=== PATIENT | female | born 1945 | race Caucasian/White ===

== ENCOUNTER 2021-11-23 07:58 | Outpatient (RCR) | payer BC, MEDICAID, SELFPAY | END 2021-11-30 09:14 | disposition home or self-care (01) | LOC: HO.WCC 07:58 | PROVIDERS: Referring Provider Physician Assistant; Visit Provider Surgery | DX: Z09 Encounter for follow-up examination after completed treatment for conditions other than malignant neoplasm (principal); L30.9 Dermatitis, unspecified; I48.91 Unspecified atrial fibrillation; I11.0 Hypertensive heart disease with heart failure; I50.9 Heart failure, unspecified; Z87.891 Personal history of nicotine dependence | CPT/HCPCS: 99213 ==

== ENCOUNTER 2022-02-17 11:18 | Emergency (ER) | payer BC, MEDICAID, SELFPAY ==
--- NOTE | ~2022-02-17 | XR_ITS ---
EXAMINATION: XR HIP, RIGHT CLINICAL INFORMATION: Fall one month ago. COMPARISON: None TECHNIQUE: Two views of the right hip. AP pelvis one view. FINDINGS: AP pelvis and right hip: There is normal symmetry of bilateral hip joints and SI joints. No pelvic bone abnormality seen. AP and frog-leg views right hip reveals no fracture, dislocation or dislocation. The soft tissues are normal. XR/XR hip RT w PEL1V IMPRESSION: Unremarkable AP pelvis and right hip exam. No visible acute fracture, dislocation or subluxation seen.
--- NOTE | ~2022-02-17 | US_ITS ---
EXAMINATION: US VENOUS ULTRASOUND WITH DOPPLER LOWER EXTREMITY, RIGHT CLINICAL INFORMATION: Right lower extremity pain. COMPARISON: None TECHNIQUE: Ultrasound of the deep veins is performed from the hip to the calf with compression sonography and color and pulse Doppler assessment. Spectral analysis with color-flow imaging is performed. FINDINGS: There is normal venous compression and respiratory variation and augmented flow. The visualized common femoral vein, superficial femoral vein, profunda femoral vein, popliteal vein, and the trifurcation region shows no evidence of deep venous thrombosis. There is no significant popliteal fossa cyst. If the patient's symptoms persist, followup ultrasound in 5 days 7 days might be of value to exclude proximal propagation from a non-visualized calf vein. US/US venous duplex LE RT IMPRESSION: No DVT demonstrated in the right lower extremity.
[2022-02-17 12:51] VITALS: BP 125/59; PULSE 64; RESP 16; TEMP 35.9; O2SAT 98; BMI 39.9
--- NOTE | 2022-02-17 12:51 | ED.GENADULT ---
HPI - General Adult General Chief complaint: Extremity Problem <CHARLEY Dodge - Last Filed: 02/17/22 13:03> Stated complaint: r hip pain <CHARLEY Dodge - Last Filed: 02/17/22 13:03> Time Seen by Provider: 02/17/22 14:35 <CHARLEY Dodge - Last Filed: 02/17/22 13:03> Source: patient and EMS <CHARLEY Dodge - Last Filed: 02/17/22 13:03> Mode of arrival: EMS <CHARLEY Dodge - Last Filed: 02/17/22 13:03> Limitations: no limitations <CHARLEY Dodge - Last Filed: 02/17/22 13:03> History of Present Illness HPI narrative: 76-year-old female with a past medical history of ?Lumbar fracture months ago s/p mechanical fall presenting to the ED complaining of acute on chronic right hip/groin pain since fall months ago. Denies more recent injury/fall or trauma. States pain intermittently radiates down right lower extremity. Reports chronic urinary incontinence, without new symptoms. Denies fever, weakness, numbness/tingling, urinary retention. Admits PCP recently started on gabapentin however self discontinued as believed it was worsening symptoms <CHARLEY Talbot - Last Filed: 02/17/22 19:14> Onset (ago): month(s) <CHARLEY Talbot - Last Filed: 02/17/22 19:14> Related Data Home medications: Home Medications Medication Instructions Recorded Confirmed acetaminophen 650 mg 1 tab PO Q8H PRN pain 02/17/22 02/17/22 tablet,extended release (8 Hour Pain Reliever) apixaban 5 mg tablet (Eliquis) 1 tab PO BID 02/17/22 02/17/22 betamethasone, augmented 0.05 % 1 appl topical BID PRN itch 02/17/22 02/17/22 topical cream calcium carbonate 500 mg-vitamin 1 tab PO BID 02/17/22 02/17/22 D3 10 mcg (400 unit) tablet (Calcium 500 With D) clindamycin HCl 300 mg capsule 1 cap PO TID 02/17/22 02/17/22 diltiazem HCl 240 mg 1 cap PO DAILY 02/17/22 02/17/22 capsule,extended release 24 hr ibuprofen 600 mg tablet 1 tab PO Q8H PRN pain 02/17/22 02/17/22 lidocaine 5 % topical ointment 1 appl topical TID PRN Back Pain 02/17/22 02/17/22 tizanidine 2 mg tablet 1 tab PO TID PRN muscle spasm 02/17/22 02/17/22 torsemide 20 mg tablet 2 tab PO DAILY 02/17/22 02/17/22 <CHARLEY Dodge - Last Filed: 02/17/22 13:03> Allergies/adverse reactions: Allergies Allergy/AdvReac Type Severity Reaction Status Date / Time No Known Allergies Allergy Verified 02/17/22 13:01 <CHARLEY Dodge - Last Filed: 02/17/22 13:03> Review of Systems Review of Systems: Constitutional: No Fever, No Chills ENT/Mouth: No Ear Pain, No Nasal Congestion, No sore throat, No Rhinorrhea, No Swallowing Difficulty Cardiovascular: No Chest Pain, No SOB Respiratory: No Cough, No Sputum Gastrointestinal: No Nausea, No Vomiting, No Diarrhea, No Constipation, No Abdominal pain Genitourinary: No Dysuria, No Urinary Frequency, No Hematuria, No Urinary Incontinence/retention, No Flank Pain Musculoskeletal: + joint pain, No Myalgias, No Joint Swelling Skin: No Skin Lesions, No rash Neuro: No Weakness, No Numbness, No Paresthesias <CHARLEY Talbot - Last Filed: 02/17/22 19:14> Yes all other systems are reviewed and are negative <CHARLEY Talbot - Last Filed: 02/17/22 19:14> Constitutional: Constitutional: Reports as per HPI <CHARLEY Talbot - Last Filed: 02/17/22 19:14> Neurologic: Denies Sensory deficit (Neuro) <CHARLEY Talbto Last Filed: 02/17/22 19:14> [facility] Past Medical History Attestation statement: The following information was validated with the patient. <CHARLEY Talbot Last Filed: 02/17/22 19:14> Social History Social History: Social History Advance Directives: No Advance Directives Information Provided: No <CHARLEY Dodge - Last Filed: 02/17/22 13:03> Physical Exam ED Vital Signs: Vital Signs - 24 hr 02/17/22 12:51 Temperature 96.7 F L Pulse Rate 64 Respiratory Rate 16 Blood Pressure 125/59 L Pulse Oximetry 98 Oxygen Delivery Method Room Air BMI result Body Mass Index 39.9 <CHARLEY Dodge - Last Filed: 02/17/22 13:03> Vital Signs - 24 hr 02/17/22 12:51 Temperature 96.7 F L Pulse Rate 64 Respiratory Rate 16 Blood Pressure 125/59 L Pulse Oximetry 98 Oxygen Delivery Method Room Air BMI result Body Mass Index 39.9 <CHARLEY Talbot - Last Filed: 02/17/22 19:14> Const General: cooperative, healthy appearing and no acute distress <CHARLEY Talbot - Last Filed: 02/17/22 19:14> Orientation/consciousness: patient oriented x3 <CHARLEY Talbot - Last Filed: 02/17/22 19:14> Limitations: no limitations <CHARLEY Talbot - Last Filed: 02/17/22 19:14> HENMT Head: Yes normal to inspection and Yes atraumatic <CHARLEY Talbot - Last Filed: 02/17/22 19:14> Ears: hearing grossly normal bilaterally <CHARLEY Talbot - Last Filed: 02/17/22 19:14> General nose exam: Normal external nose present <CHARLEY Talbot - Last Filed: 02/17/22 19:14> Face and sinus: Yes normal facial exam <CHARLEY Talbot - Last Filed: 02/17/22 19:14> Eyes General: appearance normal, both eyes and all related structures <CHARLEY Talbot - Last Filed: 02/17/22 19:14> EOM: EOMs intact bilaterally <CHARLEY Talbot - Last Filed: 02/17/22 19:14> Neck Neck: Yes normal visual inspection and Yes no meningeal signs <CHARLEY Talbot - Last Filed: 02/17/22 19:14> Resp Effort & Inspection: normal respiratory effort and no respiratory distress <Barbara Pouliot, PA - Last Filed: 02/17/22 19:14> Cardio Rate: regular rate <Barbara Pouliot, PA - Last Filed: 02/17/22 19:14> Heart sounds: S1 normal heart sound present and S2 normal heart sound present <Barbara Pouliot, PA - Last Filed: 02/17/22 19:14> Peripheral pulses: Peripheral pulses 2+ throughout <Barbara Pouliot, PA - Last Filed: 02/17/22 19:14> GI Inspection: Yes normal to inspection <Barbara Pouliot, PA - Last Filed: 02/17/22 19:14> Palpation (GI): Soft to palpation, nontender, no guarding and not rigid <Barbara Pouliot, PA - Last Filed: 02/17/22 19:14> General: Yes no CVA tenderness <Barbara Pouliot, PA - Last Filed: 02/17/22 19:14> Back/Spine/Pelvis Other: No midline thoracic/lumbar spinous tenderness/step-off or deformity <Barbara Pouliot, PA - Last Filed: 02/17/22 19:14> Back: no CVA tenderness <Barbara Pouliot, PA - Last Filed: 02/17/22 19:14> Skin Rashes: no rashes <Barbara Christieiot, PA - Last Filed: 02/17/22 19:14> Wounds: no wounds <Barabra Christiedatt, PA - Last Filed: 02/17/22 19:14> Neuro Other: Strength intact throughout. No saddle anesthesia. Sensation intact to light touch. Neurovascular intact distally <Barbara Christieiot, PA - Last Filed: 02/17/22 19:14> General: patient oriented x3, tone normal, moves all extremities and no meningeal signs <Barbara Pouliot, PA - Last Filed: 02/17/22 19:14> Motor exam (neuro): 5/5 motor strength present throughout <Barbara Pouliot, PA - Last Filed: 02/17/22 19:14> Sensory Exam: No Sensory deficit (Neuro) <Barbara Pouliot, PA - Last Filed: 02/17/22 19:14> Extrem Other: + right hip/groin with mild tenderness to palpation. Pain elicited with external rotation or right hip. Appreciable erythema/ecchymosis or deformity. Neurovascular intact distally. + mild right calf tenderness. No appreciable edema <CHARLEY Talbot Last Filed: 02/17/22 19:14> General: Yes normal to inspection <CHARLEY Talbot Last Filed: 02/17/22 19:14> Course Course Course Narrative: RME performed by Eneida Tabor PA-C. Patient is a 76 year old female presenting to the Emergency Department with right hip pain. Patient states that this is a chronic issue for which she was started on Gabapentin but it made it worse so she stopped taking it. Patient states that while she is here she would like to have her potassium checked and find out if her left ankle has cellulitis on it. CBC, CMP, ESR, CRP, and Toradol ordered. Patient placed back in waiting room pending results and bed availability. <CHARLEY Dodge Last Filed: 02/17/22 13:03> RME performed by Eneida Tabor PA-C. Patient is a 76 year old female presenting to the Emergency Department with right hip pain. Patient states that this is a chronic issue for which she was started on Gabapentin but it made it worse so she stopped taking it. Patient states that while she is here she would like to have her potassium checked and find out if her left ankle has cellulitis on it. CBC, CMP, ESR, CRP, and Toradol ordered. Patient placed back in waiting room pending results and bed availability. -1642--no appreciable leukocytosis. ESR/CRP mildly elevated. BUN elevated to 24 no available priors > will give 1 L IVF US venous duplex LE RT IMPRESSION: No DVT demonstrated in the right lower extremity. XR hip RT w PEL1V IMPRESSION: Unremarkable AP pelvis and right hip exam. No visible acute fracture, dislocation or subluxation seen. >> patient agreeable to PT/Case Management eval. Physician observation initiated -received records from [facility] patient with mild compression fracture of the superior endplate of L4 vertebral body without retropulsion of osseous fragments towards the spinal canal. Seen on CT from 02/04/2022 -190--ED care transfer to [facility] pending PT/case management <CHARLEY Talbot Last Filed: 02/17/22 19:14> Medications Administered Discontinued Medications Generic Name Dose Route Start Last Admin Trade Name Freq PRN Reason Stop Dose Admin Sodium Chloride 1,000 mls @ 999 mls/hr 02/17/22 16:45 02/17/22 18:36 Ns IV 02/17/22 17:45 Infused .Q1H1M KAREEM Infusion Ketorolac Tromethamine 15 mg 02/17/22 13:01 02/17/22 14:58 Ketorolac Tromethamine 15 Mg/Ml Vial IM 02/17/22 13:02 15 mg ONCE ONE Administration Tramadol HCl 50 mg 02/17/22 15:21 02/17/22 16:20 Tramadol Hcl 50 Mg Tablet PO 02/17/22 15:22 50 mg ONCE ONE Administration <CHARLEY Dodge - Last Filed: 02/17/22 13:03> Medications Administered Discontinued Medications Generic Name Dose Route Start Last Admin Trade Name Freq PRN Reason Stop Dose Admin Sodium Chloride 1,000 mls @ 999 mls/hr 02/17/22 16:45 02/17/22 18:36 Ns IV 02/17/22 17:45 Infused .Q1H1M KAREEM Infusion Ketorolac Tromethamine 15 mg 02/17/22 13:01 02/17/22 14:58 Ketorolac Tromethamine 15 Mg/Ml Vial IM 02/17/22 13:02 15 mg ONCE ONE Administration Tramadol HCl 50 mg 02/17/22 15:21 02/17/22 16:20 Tramadol Hcl 50 Mg Tablet PO 02/17/22 15:22 50 mg ONCE ONE Administration <CHARLEY Talbot - Last Filed: 02/17/22 19:14> Medical Decision Making [facility] Narrative Medical decision making narrative: 76-year-old female with a past medical history of ?Lumbar fracture months ago s/p mechanical fall presenting to the ED complaining of acute on chronic right hip/groin pain since fall months ago. On exam vital signs stable, NAD, nontoxic appearing, physical exam as noted above. Concern for acute on chronic arthritic/osteoarthritis pain vs ?Fracture vs DVT. No evidence of cellulitis. Low suspicion for septic joint, cauda equina/cord compression or renal stone/intra-abdominal pathology Plan: X-rays, venous duplex ultrasound, pain control <CHARLEY Talbot - Last Filed: 02/17/22 19:14> Medical Records Medical records reviewed: Yes I reviewed the patient's medical records. <CHARLEY Talbot - Last Filed: 02/17/22 19:14> Lab Data Lab results reviewed: Yes I reviewed the patient's lab results. <CHARLEY Talbot - Last Filed: 02/17/22 19:14> Result diagrams: : 02/17/22 13:13 02/17/22 13:12 <CHARLEY Dodge - Last Filed: 02/17/22 13:03> Labs: Lab Results 02/17/22 02/17/22 02/17/22 Range/Units 13:12 13:12 13:13 WBC 10.9 H (4.8-10.8) X10*3/uL RBC 4.51 (4.20-5.50) X10*6/uL Hgb 12.6 (12.0-16.0) g/dl Hct 39.2 (37.0-47.0) % MCV 86.9 (80.0-98.0) fL MCH 27.9 (27.0-33.0) pg MCHC 32.1 (31.0-35.0) g/dl RDW 14.0 (11.0-16.0) % Plt Count 306 (160-400) X10*3/uL MPV 10.6 (9.4-12.3) fL Immature Gran % (Auto) 0.3 (0.0-0.4) % Neut % (Auto) 78.5 H (45-73) % Lymph % (Auto) 13.9 L (20-40) % Dougherty % (Auto) 5.2 (2-11) % Eos % (Auto) 1.5 (0-4) % Baso % (Auto) 0.6 (0-2) % Lymph # (Auto) 1.5 (1.2-4.9) X10*3/uL Dougherty # (Auto) 0.6 (0.1-1.2) X10*3/uL Eos # (Auto) 0.2 (0.0-0.4) X10*3/uL Baso # (Auto) 0.1 (0.0-0.2) X10*3/uL Abs Immat Gran (auto) 0.03 (0.00-0.03) X10*3/uL Absolute Neuts (auto) 8.6 H (2.0-8.3) x10*3/uL Absolute Nucleated RBC 0.000 (0.0-0.012) X10*3/uL Nucleated RBC % (auto) 0.0 (0.0-0.2) /100WBC ESR (0-20) MM/HR Sodium 142 (135-145) mmol/L Potassium 3.5 (3.3-5.1) mmol/L Chloride 99 (96-108) mmol/L Carbon Dioxide 30 H (22-29) mmol/L Anion Gap 17 (12-20) BUN 24 H (9-16) mg/dL Creatinine 0.83 (0.5-1.4) mg/dL Estim Creat Clear Calc 58.7 Estimated GFR > 60 Random Glucose 104 (60-115) mg/dL Calcium 9.5 (8.4-10.2) mg/dL Total Bilirubin 0.4 (0.0-1.0) mg/dL AST 28 (5-31) U/L ALT 46 H (0-31) U/L Alkaline Phosphatase 91 (39-117) U/L C-Reactive Protein 3.06 H (< or = 0.50) mg/dL B-Natriuretic Peptide 64 (<100) pg/mL Total Protein 6.6 (6.5-8.0) g/dL Albumin 4.1 (3.5-5.0) g/dL 02/17/22 Range/Units 13:13 WBC (4.8-10.8) X10*3/uL RBC (4.20-5.50) X10*6/uL Hgb (12.0-16.0) g/dl Hct (37.0-47.0) % MCV (80.0-98.0) fL MCH (27.0-33.0) pg MCHC (31.0-35.0) g/dl RDW (11.0-16.0) % Plt Count (160-400) X10*3/uL MPV (9.4-12.3) fL Immature Gran % (Auto) (0.0-0.4) % Neut % (Auto) (45-73) % Lymph % (Auto) (20-40) % Dougherty % (Auto) (2-11) % Eos % (Auto) (0-4) % Baso % (Auto) (0-2) % Lymph # (Auto) (1.2-4.9) X10*3/uL Dougherty # (Auto) (0.1-1.2) X10*3/uL Eos # (Auto) (0.0-0.4) X10*3/uL Baso # (Auto) (0.0-0.2) X10*3/uL Abs Immat Gran (auto) (0.00-0.03) X10*3/uL Absolute Neuts (auto) (2.0-8.3) x10*3/uL Absolute Nucleated RBC (0.0-0.012) X10*3/uL Nucleated RBC % (auto) (0.0-0.2) /100WBC ESR 31 H (0-20) MM/HR Sodium (135-145) mmol/L Potassium (3.3-5.1) mmol/L Chloride (96-108) mmol/L Carbon Dioxide (22-29) mmol/L Anion Gap (12-20) BUN (9-16) mg/dL Creatinine (0.5-1.4) mg/dL Estim Creat Clear Calc Estimated GFR Random Glucose (60-115) mg/dL Calcium (8.4-10.2) mg/dL Total Bilirubin (0.0-1.0) mg/dL AST (5-31) U/L ALT (0-31) U/L Alkaline Phosphatase (39-117) U/L C-Reactive Protein (< or = 0.50) mg/dL B-Natriuretic Peptide (<100) pg/mL Total Protein (6.5-8.0) g/dL Albumin (3.5-5.0) g/dL <CHARLEY Dodge - Last Filed: 02/17/22 13:03> Lab Results 02/17/22 02/17/22 02/17/22 Range/Units 13:12 13:12 13:13 WBC 10.9 H (4.8-10.8) X10*3/uL RBC 4.51 (4.20-5.50) X10*6/uL Hgb 12.6 (12.0-16.0) g/dl Hct 39.2 (37.0-47.0) % MCV 86.9 (80.0-98.0) fL MCH 27.9 (27.0-33.0) pg MCHC 32.1 (31.0-35.0) g/dl RDW 14.0 (11.0-16.0) % Plt Count 306 (160-400) X10*3/uL MPV 10.6 (9.4-12.3) fL Immature Gran % (Auto) 0.3 (0.0-0.4) % Neut % (Auto) 78.5 H (45-73) % Lymph % (Auto) 13.9 L (20-40) % Dougherty % (Auto) 5.2 (2-11) % Eos % (Auto) 1.5 (0-4) % Baso % (Auto) 0.6 (0-2) % Lymph # (Auto) 1.5 (1.2-4.9) X10*3/uL Dougherty # (Auto) 0.6 (0.1-1.2) X10*3/uL Eos # (Auto) 0.2 (0.0-0.4) X10*3/uL Baso # (Auto) 0.1 (0.0-0.2) X10*3/uL Abs Immat Gran (auto) 0.03 (0.00-0.03) X10*3/uL Absolute Neuts (auto) 8.6 H (2.0-8.3) x10*3/uL Absolute Nucleated RBC 0.000 (0.0-0.012) X10*3/uL Nucleated RBC % (auto) 0.0 (0.0-0.2) /100WBC ESR (0-20) MM/HR Sodium 142 (135-145) mmol/L Potassium 3.5 (3.3-5.1) mmol/L Chloride 99 (96-108) mmol/L Carbon Dioxide 30 H (22-29) mmol/L Anion Gap 17 (12-20) BUN 24 H (9-16) mg/dL Creatinine 0.83 (0.5-1.4) mg/dL Estim Creat Clear Calc 58.7 Estimated GFR > 60 Random Glucose 104 (60-115) mg/dL Calcium 9.5 (8.4-10.2) mg/dL Total Bilirubin 0.4 (0.0-1.0) mg/dL AST 28 (5-31) U/L ALT 46 H (0-31) U/L Alkaline Phosphatase 91 (39-117) U/L C-Reactive Protein 3.06 H (< or = 0.50) mg/dL B-Natriuretic Peptide 64 (<100) pg/mL Total Protein 6.6 (6.5-8.0) g/dL Albumin 4.1 (3.5-5.0) g/dL 02/17/22 Range/Units 13:13 WBC (4.8-10.8) X10*3/uL RBC (4.20-5.50) X10*6/uL Hgb (12.0-16.0) g/dl Hct (37.0-47.0) % MCV (80.0-98.0) fL MCH (27.0-33.0) pg MCHC (31.0-35.0) g/dl RDW (11.0-16.0) % Plt Count (160-400) X10*3/uL MPV (9.4-12.3) fL Immature Gran % (Auto) (0.0-0.4) % Neut % (Auto) (45-73) % Lymph % (Auto) (20-40) % Dougherty % (Auto) (2-11) % Eos % (Auto) (0-4) % Baso % (Auto) (0-2) % Lymph # (Auto) (1.2-4.9) X10*3/uL Dougherty # (Auto) (0.1-1.2) X10*3/uL Eos # (Auto) (0.0-0.4) X10*3/uL Baso # (Auto) (0.0-0.2) X10*3/uL Abs Immat Gran (auto) (0.00-0.03) X10*3/uL Absolute Neuts (auto) (2.0-8.3) x10*3/uL Absolute Nucleated RBC (0.0-0.012) X10*3/uL Nucleated RBC % (auto) (0.0-0.2) /100WBC ESR 31 H (0-20) MM/HR Sodium (135-145) mmol/L Potassium (3.3-5.1) mmol/L Chloride (96-108) mmol/L Carbon Dioxide (22-29) mmol/L Anion Gap (12-20) BUN (9-16) mg/dL Creatinine (0.5-1.4) mg/dL Estim Creat Clear Calc Estimated GFR Random Glucose (60-115) mg/dL Calcium (8.4-10.2) mg/dL Total Bilirubin (0.0-1.0) mg/dL AST (5-31) U/L ALT (0-31) U/L Alkaline Phosphatase (39-117) U/L C-Reactive Protein (< or = 0.50) mg/dL B-Natriuretic Peptide (<100) pg/mL Total Protein (6.5-8.0) g/dL Albumin (3.5-5.0) g/dL <CHARLEY Talbot - Last Filed: 02/17/22 19:14> Discharge Plan Discharge Clinical Impression: Hip pain <CHARLEY Dodge - Last Filed: 02/17/22 13:03> Patient Disposition: Still a Patient <CHARLEY Dodge - Last Filed: 02/17/22 13:03> Prescriptions: No Action torsemide 20 mg tablet 2 tab PO DAILY tizanidine 2 mg tablet 1 tab PO TID PRN (Reason: muscle spasm) clindamycin HCl 300 mg capsule 1 cap PO TID diltiazem HCl 240 mg capsule,extended release 24hr 1 cap PO DAILY betamethasone, augmented 0.05 % cream 1 appl topical BID PRN (Reason: itch) acetaminophen [8 Hour Pain Reliever] 650 mg tablet extended release 1 tab PO Q8H PRN (Reason: pain) ibuprofen 600 mg tablet 1 tab PO Q8H PRN (Reason: pain) calcium carbonate-vitamin D3 [Calcium 500 With D] 500 mg-10 mcg (400 unit) tablet 1 tab PO BID lidocaine 5 % ointment 1 appl topical TID PRN (Reason: Back Pain) Eliquis 5 mg tablet 1 tab PO BID <CHARLEY Dodge - Last Filed: 02/17/22 13:03>
[2022-02-17 13:20] LABS: MANUAL DIFF FLAG NO
[2022-02-17 13:23] LABS: Basophils Absolute Auto 0.1 X10*3/uL (0.0-0.2); Basophils Percent Auto 0.6 % (0-2); Eosinophils Absolute Auto 0.2 X10*3/uL (0.0-0.4); Eosinophils Percent Auto 1.5 % (0-4); Hematocrit 39.2 % (37.0-47.0); Hemoglobin 12.6 g/dl (12.0-16.0); Imm Gran Abs Auto 0.03 X10*3/uL (0.00-0.03); Imm Gran Pct Auto 0.3 % (0.0-0.4); Lymphocytes Absolute Auto 1.5 X10*3/uL (1.2-4.9); Lymphocytes Percent Auto 13.9 % (20-40); Mean Corpuscular HGB Conc 32.1 g/dl (31.0-35.0); Mean Corpuscular Hemoglobin 27.9 pg (27.0-33.0); Mean Corpuscular Volume 86.9 fL (80.0-98.0); Mean Platelet Volume 10.6 fL (9.4-12.3); Monocytes Absolute Auto 0.6 X10*3/uL (0.1-1.2); Monocytes Percent Auto 5.2 % (2-11); Neutrophils Absolute Auto 8.6 x10*3/uL (2.0-8.3); Neutrophils Percent Auto 78.5 % (45-73); Platelet Count 306 X10*3/uL (160-400); Red Blood Count 4.51 X10*6/uL (4.20-5.50); White Blood Count 10.9 X10*3/uL (4.8-10.8)
[2022-02-17 13:38] LABS: Alanine Aminotransferase 46 U/L (0-31); Albumin Level 4.1 g/dL (3.5-5.0); Alkaline Phosphatase 91 U/L (39-117); Anion Gap 17 (12-20); Aspartate Amino Transferase 28 U/L (5-31); Bilirubin Total 0.4 mg/dL (0.0-1.0); Blood Urea Nitrogen 24 mg/dL (9-16); C Reactive Protein 3.06 mg/dL (< or = 0.50); Calcium 9.5 mg/dL (8.4-10.2); Carbon Dioxide 30 mmol/L (22-29); Chloride 99 mmol/L (96-108); Creatinine Clr Calc Pharmacy 58.7; Estimated Glomerular Filt Rate > 60; Glucose Random 104 mg/dL (60-115); Potassium 3.5 mmol/L (3.3-5.1); Sodium 142 mmol/L (135-145); Total Protein 6.6 g/dL (6.5-8.0)
[2022-02-17 13:56] LABS: Erythrocyte Sedimentation Rate 31 MM/HR (0-20)
[2022-02-17] MEDS: Ketorolac Tromethamine 15 MG/ML VIAL IM (14:58)
[2022-02-17 15:55] LABS: B Type Natriuretic Peptide 64 pg/mL (<100)
[2022-02-17] MEDS: traMADoL HCL 50 MG TABLET PO (16:20)
[2022-02-17] MEDS: 0.9 % Sodium Chloride 1,000 ML 999 ML IV (17:09)
--- NOTE | 2022-02-17 19:04 | PHA.MEDREC ---
Pharmacy Consult ? Medication Reconciliation Pharmacy has completed the medication reconciliation. Patient confirmed all medications. Reports that gabapentin made her feel weird so she stopped taking it. Nasreen Kent, MelD
--- NOTE | 2022-02-17 19:08 | PC.NURSE ---
Assumed care of pt.
[2022-02-17] MEDS: oxyCODONE HCl Immed Release 5 MG TABLET PO (19:34)
--- NOTE | 2022-02-17 19:35 | PC.NURSE ---
Administered oxycodone PO per MAY.
--- NOTE | 2022-02-17 19:59 | PC.NURSE ---
Patient ambulated to bathroom with 1 assist
[2022-02-17 20:37] VITALS: BP 128/48; PULSE 58; RESP 18; TEMP 36.4; O2SAT 96
[2022-02-17 21:07] LABS: COVID-19 Test Negative (Negative); IDNOW Serial# BCCEAD1C
[2022-02-18] VITALS: BP 114/48; PULSE 65; RESP 16; TEMP 36.8; O2SAT 95
--- NOTE | 2022-02-18 01:46 | PC.NURSE ---
Patient states a pain levle of 6/10 after ambulating to the bathroom (1 assist). Will notify provider as she is requesting meds for the pain.
[2022-02-18 01:48] VITALS: BP 132/47; PULSE 66; RESP 16; TEMP 36.5; O2SAT 93
--- NOTE | 2022-02-18 03:23 | PC.NURSE ---
Patient sleeping. No apparent distress. Will continue to monitor.
--- NOTE | 2022-02-18 03:25 | PC.NURSE ---
Patient is sleeping. No apparent distress. Will continue to monitor.
--- NOTE | 2022-02-18 06:43 | PC.NURSE ---
Assisted patient with getting to the restroom. Pt c/o increased pain after ambulating to the bathroom. Will notify provider and request medication for pain per patient request.
[2022-02-18 07:30] VITALS: BP 137/55; PULSE 66; RESP 18; TEMP 37; O2SAT 95
--- NOTE | 2022-02-18 10:19 | MHC.CM.ED ---
Received case management consult overnight. Patient came to the ER due to right hip pain exacerbation. Physical therapy eval completed. Resumption of home therapies are recommended. Met with patient in regards to discharge planning. Patient lives alone, ambulates independently and is active with [facility]. PCP is Pablo Santos. Patient has not received any Covid vaccines. Patient agreeable to returning home with resumption of [facility] for physical therapy. [facility] chair van booked for 1130am. Patient, Gabby BRONSON and Barbara WHITEHEAD aware. Continue to monitor for d/c needs.
[2022-02-18] MEDS: dilTIAZem HCL CD 240 MG CAP.ER.DEG PO (10:32)
[2022-02-18] MEDS: Apixaban 5 MG TABLET PO (10:33)
[2022-02-18] MEDS: Torsemide 20 MG TABLET 40 MG PO (10:33)
[2022-02-18 10:47] LABS: Blood Urea Nitrogen 22 mg/dL (9-16); Calcium 9.7 mg/dL (8.4-10.2); Estimated Glomerular Filt Rate > 60; Glucose Random 93 mg/dL (60-115)
[2022-02-18 10:55] LABS: Anion Gap 13 (12-20); Carbon Dioxide 33 mmol/L (22-29); Chloride 102 mmol/L (96-108); Potassium 4.4 mmol/L (3.3-5.1); Sodium 144 mmol/L (135-145)
[2022-02-18] MEDS: traMADoL HCL 50 MG TABLET PO (11:50)
== END 2022-02-18 11:56 | disposition home or self-care (01) ==
PROVIDERS: Physician Assistant; Physician Assistant Medical; Emergency Provider Emergency Medicine; PCP Internal Medicine
DX: M25.551 Pain in right hip (principal); R26.81 Unsteadiness on feet; R60.0 Localized edema; R06.02 Shortness of breath; Z20.822 Contact with and (suspected) exposure to COVID-19; Z79.899 Other long term (current) drug therapy
CPT/HCPCS: 36415; 73502; 80048; 80053; 83880; 85025; 85652; 86140; 87635; 93971; 97162; 99284; J1885

== ENCOUNTER 2024-11-28 15:55 | Emergency (ER) | payer MEDICARE, MEDICAID, SELFPAY ==
[2024-11-28 16:02] VITALS: BP 119/53; BP 156/82; PULSE 107; PULSE 82; RESP 16; TEMP 36.9; O2SAT 100; O2SAT 98; BMI 33.3
--- OUTSIDE RECORDS SUMMARY | 2024-11-28 16:34 | XMS_ITS | Clinical Summary ---
Author Organization [facility] [address] [place] [address] [place] [phone] Phone Care Team Providers Care Warp Drawer Name Role Phone Tim Atwood MD Primary Care Provider [phone] Allergies Active Allergy Reactions Criticality Noted Date Comments Cephalexin Rash High 06/23/2024 Crab Rash 09/15/2024 Doxycycline 01/18/2022 Other Reaction(s): Rash/Dermatitis Hydromorphone 09/15/2024 Hives Iodine 04/17/2005 Other Reaction(s): Hives/Urticaria Penicillins 04/17/2005 Other Reaction(s): Hives/Urticaria Pineapple 09/15/2024 Silver Sulfadiazine 01/01/2011 Other Reaction(s): Hives/Urticaria Sulfamethoxazole-Trimethoprim High 2010 Other Reaction(s): Hives/Urticaria Medications apixaban (Eliquis) 5 mg tablet Take 1 tablet (5 mg total) by mouth 2 (two) times a day. [facility] Active dilTIAZem CD (CARDIZEM CD) 240 mg 24 hr capsule Take 1 capsule (240 mg total) by mouth 1 (one) time each day. [facility] Active torsemide (DEMADEX) 20 mg tablet Take 1 tablet (20 mg total) by mouth 2 (two) times a day. [facility] Active acetaminophen (TYLENOL 8 HOUR) 650 mg 8 hr tablet TAKE 1 TABLET BY MOUTH EVERY 6 HOURS NEEDED FOR PAIN 270 tablet 3 Active Active Problems Problem Noted Date Diagnosed Date Chronic low back pain 04/08/2023 Skin rash 04/08/2023 Swelling of lower extremity 04/08/2023 Wears dentures 04/08/2023 Obesity (BMI 30-39.9) 10/28/2022 Pain in both lower extremities 10/28/2022 Paroxysmal atrial fibrillation ([facility] V24, [facility] V28) 10/28/2022 Venous (peripheral) insufficiency 04/17/2005 Encounters Date Type Department Care Team Description 11/15/2024 4:14 PM EDT - 11/15/2024 11:59 PM EDT Hospital Encounter Radiology Department - [address] [phone] Chronic low back pain, unspecified back pain laterality, unspecified whether sciatica present Discharge Disposition: Home or Self Care 11/03/2024 Telephone Adult Medicine [address] [phone] Tim Atwood MD 11/01/2024 Telephone Adult Medicine [address] [phone] Tim Atwood MD 11/01/2024 Telephone Adult Medicine [address] [phone] Tim Atwood MD 10/15/2024 1:05 PM EDT - 10/15/2024 11:59 PM EDT Hospital Encounter XRAY [address] [phone] Chronic low back pain, unspecified back pain laterality, unspecified whether sciatica present Discharge Disposition: Home or Self Care 10/15/2024 12:30 PM EDT Office Visit Adult Medicine [address] [phone] Tim Atwood MD Chronic low back pain, unspecified back pain laterality, unspecified whether sciatica present (Primary Dx); Venous (peripheral) insufficiency; Paroxysmal atrial fibrillation (CMS/HCC V24, CMS/HCC V28); Swelling of lower extremity 10/08/2024 Telephone Adult Medicine [address] [phone] Tim Atwood MD 09/15/2024 1:15 PM EDT Office Visit Adult [address] [phone] Yonathan Aguiar, [place] Cellulitis of left lower extremity (Primary Dx); Venous (peripheral) insufficiency; Paroxysmal atrial fibrillation (CMS/HCC V24, CMS/HCC V28); Encounter for screening for cardiovascular disorders from Last 3 Months Surgical History Surgery Date Site/Laterality Comments TONSILLECTOMY PROCEDURE: HISTORICAL TONSILLECTOMY Medical History Medical History Date Comments Paroxysmal atrial fibrillati on (CMS/HCC V24, CMS/HCC V28) DX:Paroxysmal atrial fibrill ation (HCC) Osteoporosis DX:Osteoporosis Family History Medical History Relation Name Comments Coronary artery disease Father Other: bladder cancer Mother Blindness Neg Hx Cataracts Neg Hx Glaucoma Neg Hx Macular degeneration Neg Hx Strabismus Neg Hx Relation Name Status Comments Father (Age 86) Mother Social History Tobacco Use Types Packs/Day Years Used Date Smoking Tobacco: Former Cigarettes Q uit: 03/24/1975 Smokeless Tobacco: Never Alcohol Use Standard Drinks/Week Comments No 0 (1 standard drink = 0.6 oz pur e alcohol) Comments No Sex and Gender Information Value Date Recorded Sex Assigned at Not on file Legal Sex Female 12:06 AM EST Gender Identity Not on file Sexual Orientation Not on file Obstetrics History Last Filed Vital Signs Vital Sign Reading Time Taken Comments Blood Pressure 112/60 10/15/2024 12:27 PM EDT Pulse 92 10/15/2024 12:27 PM EDT Temperature 36.4 C (97.6 F) 10/15/2024 12:27 PM EDT Respiratory Rate 14 09/15/2024 1:19 PM EDT Oxygen Saturation 98% 09/15/2024 1:19 PM EDT Inhaled Oxygen Concentration - - Weight 76.7 kg (169 lb) 10/15/2024 12:27 PM EDT Height 152.4 cm (5') 10/15/2024 12:27 PM EDT Body Mass Index 33.01 10/15/2024 12:27 PM EDT Plan of Treatment Upcoming Encounters Date Type Department Care Team (Late st Contact Info) Description 12/09/2024 12:45 PM EDT Ancillary Procedure [facility] [address] [place] [phone] 01/13/2025 10:30 AM EDT Office Visit Vascular Surgery - [place] [address] [place] [phone] Hellen Mendoza MD [address] [place] [phone] Health Maintenance Due Date Last Done Comments DTaP,Tdap,and Td Vaccines (1 - Tdap) 1964 Pneumococcal Vaccine: 50+ Years (1 of 1 - PCV) 10/06/1995 Zoster Vaccines (1 of 2) 10/06/1995 RSV Immunization Adult Patients (1 - 1-dose 75+ series) 2020 Colorectal Cancer Screening: Stool Based Tests (FOBT/FIT) 03/03/2022 Osteoporosis Screening (Bone Density Screening) 03/03/2022 Social Influencers of Health Screening 03/03/2022 Depression Screening 03/24/2024 04/08/2023 Falls Risk Assessment 04/08/2024 04/08/2023 Medicare Annual Wellness Visit 04/08/2024 04/08/2023 COVID-19 Vaccine (1 - 2023-2 5 season) 2024 Influenza Vaccine (#1) 2024 Cholesterol Screening (Lipid Panel) 09/15/2029 09/15/2024, 06/25/2022 Hepatitis C Screening Completed 07/09/2012 HIB Vaccines Aged Out No longer eligi ble based on patient's age to complete this topic HPV Vaccines Aged Out No longer eligi ble based on patient's age to complete this topic Hepatitis A Vaccines Aged Out No long er eligible based on patient's age to complete this topic Hepatitis B Vaccines Aged Out No long er eligible based on patient's age to complete this topic IPV Vaccines Aged Out No longer eligi ble based on patient's age to complete this topic MMR Vaccines Aged Out No longer eligi ble based on patient's age to complete this topic Meningococcal ACWY Vaccine Aged Out N o longer eligible based on patient's age to complete this topic Meningococcal B Vaccine Aged Out No l onger eligible based on patient's age to complete this topic RSV Immunization Patients Under 20 months Aged Out No longer eligible b ased on patient's age to complete this topic Varicella Vaccines Aged Out No longer eligible based on patient's age to complete this topic Procedures Procedure Name Priority Date/Time Associated Diagnosis Comments MR LUMBAR SPINE WO CONTRAST Routine 11/15/2024 5:27 PM EDT Chronic low back pain, unspecified back pain laterality, unspecified whether sciatica present XR LUMBAR SPINE 4+ VIEWS Routine 10/15/2024 1:30 PM EDT Chronic low back pain, unspecified back pain laterality, unspecified whether sciatica present CBC WITH AUTO DIFFERENTIAL Routine 09/15/2024 2:25 PM EDT Encounter for screening for cardiovascular disorders Paroxysmal atrial fibrillation (CMS/HCC V24, CMS/HCC V28) Venous (peripheral) insufficiency Prediabetes COMPREHENSIVE METABOLIC PANEL Routine 09/15/2024 2:25 PM EDT Encounter for screening for cardiovascular disorders Paroxysmal atrial fibrillation (CMS/HCC V24, CMS/HCC V28) Venous (peripheral) insufficiency Prediabetes LIPID PANEL WITH REFLEX TO DIRECT LDL Routine 09/15/2024 2:25 PM EDT Encounter for screening for cardiovascular disorders Paroxysmal atrial fibrillation (CMS/HCC V24, CMS/HCC V28) Venous (peripheral) insufficiency Prediabetes THYROID STIMULATING HORMONE WITH REFLEX TO FREE T4 AND FREE T3 Routine 09/15/2024 2:25 PM EDT Encounter for screening for cardiovascular disorders Paroxysmal atrial fibrillation (CMS/HCC V24, CMS/HCC V28) Venous (peripheral) insufficiency Prediabetes CBC AND DIFFERENTIAL Routine 09/15/2024 2:25 PM EDT Encounter for screening for cardiovascular disorders Paroxysmal atrial fibrillation (CMS/HCC V24, CMS/HCC V28) Venous (peripheral) insufficiency Prediabetes HEMOGLOBIN A1C Routine 09/15/2024 2:25 PM EDT Encounter for screening for cardiovascular disorders Paroxysmal atrial fibrillation (CMS/HCC V24, CMS/HCC V28) Venous (peripheral) insufficiency Prediabetes DEPRESSION SCREENING Routine 04/08/2023 FALLS RISK ASSESSMENT Routine 04/08/2023 HEPATITIS C SCREENING Routine 07/09/2012 from Last 3 Months or Most Recently Relevant to Health Maintenance Results * MR Lumbar Spine wo Contrast (11/15/2024 5:27 PM EDT) Anatomical Region Laterality Modality L-spine, Spine Magnetic Resonan ce 11/16/2024 9:43 AM EDT Narrative 11/16/2024 10:03 AM EDT MRI of the lumbosacral spine without intravenous contrast. History chronic low back pain. Examination was performed on 1.5 Malena magnet without administration of intravenous contrast. No prior MRI examinations are available for comparison. Plain films from 10/15/2024 was reviewed. Conus medullaris terminates at L1-2 level. There is severe compression deformity of the L5 with retropulsion of the posterior aspect and severe bone marrow edema. There are poorly defined posterior elements of the L4 and L5. There is bone marrow edema of the S1 with irregularity and mild compression deformity of the superior endplate of the S1 T12-L1 level is unremarkable. At L1-2 level there is mild retrolisthesis of L1 over L2. Disc is decreased in height and T2 signal. There is disc osteophyte complex. There is narrowing of the L1 neural foramina right more than left. There is possible compression of the right L1 nerve root. At L2-3 level disc is decreased in T2 signal. There is mild retrolisthesis of L2 over L3. There is bulging of the disc and marginal osteophytes. There is narrowing of the lateral recesses and L2 neural foramina. There is possible compression of the L2 nerve root. At L3-4 level disc is decreased in height and T2 signal. There is bulging of the disc. There are hypertrophic changes in the facet joints as well as hypertrophy of the epidural fat contributing to mild spinal stenosis. There is bunching of the nerve roots within the spinal canal. There is poor definition of the lamina and spinous process of uncertain nature At L4-5 level there is severe compression deformity of the L5 with posterior retropulsion of the posterior aspect. The retropulsed fragment extends superiorly. It contributes to severe spinal stenosis. There is poor definition of the facet joints which appear to be hypertrophied as well as spinous process. There is some thickening of the perivertebral soft tissues at L5 level. There is severe stenosis of the L4 neural foramina with compression of the L4 nerve roots. At L5-S1 level there is bulging of the disc without focal disc herniation. There is mild compression deformity and irregularity of the superior endplate of the S1 There is severe edema of the entire S1 vertebral . There is also edema of the epidural fat at this level.. Severe atrophy of the paraspinal muscles was noted CONCLUSIONS: Severe compression deformity of the L5 with retropulsion of the posterior aspect contributing to severe spinal stenosis at L4-5 level. Mild compression deformity and irregularity of the superior endplate of the S1 with severe bone marrow edema involving the S1. Poor definition of the posterior elements of the L4,L5 and S1. Multilevel bony and discs degenerative changes at other levels as detailed. Possibility of pathological fractures of the L5 and S1 should be considered as differential diagnosis between the infectious and neoplastic etiology. Additional evaluation with contrast-enhanced MRI examination as well as CT scan of the lumbosacral spine for better assessment of the bony architecture is recommended. -------- FINAL REPORT -------- Dictated By: Sherri Freitas Dictated Date: 11/16/2024 09:43 ET Assigned Physician: Sherri Freitas Reviewed and Electronically Signed By: Sherri Freitas Signed Date: 11/16/2024 10:03 ET Workstation ID: [id number] Transcribed By: Self Edit Transcribed Date: 11/16/2024 09:43 ET Procedure Note Sherri Freitas MD - 11/16/2024 MRI of the lumbosacral spine without intravenous contrast. History chronic low back pain. Examination was performed on 1.5 Malena magnet without administration ofintravenous contrast. No prior MRI examinations are available forcomparison. Plain films from 10/15/2024 was reviewed. Conus medullaris terminates at L1-2 level. There is severe compressiondeformity of the L5 with retropulsion of the posterior aspect and severebone marrow edema. There are poorly defined posterior elements of the L4and L5. There is bone marrow edema of the S1 with irregularity and mildcompression deformity of the superior endplate of the S1 T12-L1 level isunremarkable. At L1-2 level there is mild retrolisthesis of L1 over L2. Disc isdecreased in height and T2 signal. There is disc osteophyte complex. Thereis narrowing of the L1 neural foramina right more than left. There ispossible compression of the right L1 nerve root. At L2-3 level disc is decreased in T2 signal. There is mild retrolisthesisof L2 over L3. There is bulging of the disc and marginal osteophytes.There is narrowing of the lateral recesses and L2 neural foramina. Thereis possible compression of the L2 nerve root. At L3-4 level disc is decreased in height and T2 signal. There is bulgingof the disc. There are hypertrophic changes in the facet joints as well ashypertrophy of the epidural fat contributing to mild spinal stenosis.There is bunching of the nerve roots within the spinal canal. There ispoor definition of the lamina and spinous process of uncertain nature At L4-5 level there is severe compression deformity of the L5 withposterior retropulsion of the posterior aspect. The retropulsed fragmentextends superiorly. It contributes to severe spinal stenosis. There ispoor definition of the facet joints which appear to be hypertrophied aswell as spinous process. There is some thickening of the perivertebralsoft tissues at L5 level. There is severe stenosis of the L4 neuralforamina with compression of the L4 nerve roots. At L5-S1 level there is bulging of the disc without focal disc herniation.There is mild compression deformity and irregularity of the superiorendplate of the S1 There is severe edema of the entire S1 vertebral .There is also edema of the epidural fat at this level.. Severe atrophy ofthe paraspinal muscles was noted CONCLUSIONS: Severe compression deformity of the L5 with retropulsion ofthe posterior aspect contributing to severe spinal stenosis at L4-5 level.Mild compression deformity and irregularity of the superior endplate ofthe S1 with severe bone marrow edema involving the S1. Poor definition ofthe posterior elements of the L4,L5 and S1. Multilevel bony and discs degenerative changes at other levels asdetailed. Possibility of pathological fractures of the L5 and S1 should beconsidered as differential diagnosis between the infectious and neoplasticetiology. Additional evaluation with contrast-enhanced MRI examination aswell as CT scan of the lumbosacral spine for better assessment of the bonyarchitecture is recommended. -------- FINAL REPORT -------- Dictated By: Sherri Freitas Dictated Date: 11/16/2024 09:43 ET Assigned Physician: Sherri Freitas Reviewed and Electronically Signed By: Sherri Freitas Signed Date: 11/16/2024 10:03 ET Workstation ID: [id number] Transcribed By: Self Edit Transcribed Date: 11/16/2024 09:43 ET us Tim Atwood MD IMG MRI PROCEDURES Final Re sult * XR Lumbar Spine 4+ Views (10/15/2024 1:30 PM EDT) Anatomical Region Laterality Modality Spine, L-spine Radiographic Lilly ging 10/15/2024 4:07 PM EDT Impressions 10/15/2024 4:18 PM EDT 1. Extensive degenerative changes of the lumbar spine. Chronic compression fractures. 2. No acute fracture or dislocation. -------- FINAL REPORT -------- Dictated By: Anil Palma Dictated Date: 10/15/2024 16:07 ET Assigned Physician: Anil Palma Reviewed and Electronically Signed By: Anil Palma Signed Date: 10/15/2024 16:18 ET Workstation ID: [id number] Transcribed By: Self Edit Transcribed Date: 10/15/2024 16:07 ET Narrative 10/15/2024 4:18 PM EDT HISTORY: chronic low back pain TECHNIQUE: 5 views of the lumbar spine COMPARISON: None FINDINGS: More than 75% vertebral body height loss of L5 suggesting chronic compression fracture. Less than 25% vertebral body height loss of L1 which is chronic. The remainder the vertebral body height is grossly maintained. Endplate cirrhosis at multiple levels. There is grade 1 L2 on L3 retrolisthesis of L3 on L4 grade 1 retrolisthesis. Extensive facet arthropathy is present at the lower lumbar spine. Severe neuroforaminal stenosis is present at multiple levels. The sacroiliac joints are grossly patent. Large amount stool throughout the colon. Procedure Note Anil Palma MD - 10/15/2024 HISTORY: chronic low back pain TECHNIQUE: 5 views of the lumbar spine COMPARISON: None FINDINGS: More than 75% vertebral body height loss of L5 suggesting chroniccompression fracture. Less than 25% vertebral body height loss of L1 whichis chronic. The remainder the vertebral body height is grossly maintained.Endplate cirrhosis at multiple levels. There is grade 1 L2 on [id number] of L3 on L4 grade 1 retrolisthesis. Extensive facetarthropathy is present at the lower lumbar spine. Severe neuroforaminalstenosis is present at multiple levels. The sacroiliac joints are grosslypatent. Large amount stool throughout the colon. IMPRESSION: 1. Extensive degenerative changes of the lumbar spine. Chronic compressionfractures. 2. No acute fracture or dislocation. -------- FINAL REPORT -------- Dictated By: Anil Palma Dictated Date: 10/15/2024 16:07 ET Assigned Physician: Anil Palma Reviewed and Electronically Signed By: Anil Palma Signed Date: 10/15/2024 16:18 ET Workstation ID: [id number] Transcribed By: Self Edit Transcribed Date: 10/15/2024 16:07 ET us Zeinaduzeke Atwood MD IMG XR PROCEDURES Final Res ult * Thyroid stimulating hormone with reflex to free t4 and free t3 (09/15/2024 2:25 PM EDT) TSH 2.88 0.40 - 4.00 mcIU/mL LAB CHEMISTRY METHOD 09/15/2024 6:21 PM EDT [facility] Blood Venous blood specimen / Unknown Venipuncture / Unknown 09/15/2024 2:25 PM EDT 09/15/2024 2:25 PM EDT Yonathan Aguiar [employer] LAB BLOOD ORDERABLES Final R esult [facility] [address] [place] [address], [place] [phone] * Lipid panel with reflex to direct LDL (09/15/2024 2:25 PM EDT) Cholesterol 159 0 - 200 mg/dL LAB CHEMISTRY METHOD 09/15/2024 5:51 PM EDT [facility] Triglycerides 132 0 - 150 mg/dL LAB CHEMISTRY METHOD 09/15/2024 5:51 PM EDT [facility] HDL 53 >=40 mg/dL LAB CHEMISTRY METHOD 09/15/2024 5:51 PM EDT [facility] LDL Calculated 80 0 - 100 mg/dL LAB CHEMISTRY METHOD 09/15/2024 5:51 PM EDT [facility] VLDL Cholesterol Jean-Pierre 26.4 mg/dL LAB CHEMISTRY METHOD 09/15/2024 5:51 PM EDT [facility] Non HDL Chol. (LDL+VLDL) 106 <145 mg/dL LAB CHEMISTRY METHOD 09/15/2024 5:51 PM EDT [facility] Chol/HDL Ratio 3.0 0.0 - 4.4 LAB CHEMISTRY METHOD 09/15/2024 5:51 PM EDT [facility] Blood Venous blood specimen / Unknown Venipuncture / Unknown 09/15/2024 2:25 PM EDT 09/15/2024 2:25 PM EDT Yonathan Aguiar [employer] LAB BLOOD ORDERABLES Final R esult [facility] [address] [place] [address], * (ABNORMAL) CBC auto differential (09/15/2024 2:25 PM EDT) [facility] WBC 10.7 4.8 - 10.8 K/mcL LAB HEMETOLOGY METHOD 09/15/2024 4:30 PM EDT [facility] RBC 4.80 3.80 - 4.80 M/mcL LAB HEMETOLOGY METHOD 09/15/2024 4:30 PM EDT [facility] Hemoglobin 12.8 11.5 - 16.0 g/dL LAB HEMETOLOGY METHOD 09/15/2024 4:30 PM EDT [facility] Hematocrit 42.1 35.0 - 47.0 % LAB HEMETOLOGY METHOD 09/15/2024 4:30 PM EDT [facility] MCV 87.0 79.0 - 98.0 FL LAB HEMETOLOGY METHOD 09/15/2024 4:30 PM EDT [facility] MCH 26.4(L) 27.0 - 32.0 pcg LAB HEMETOLOGY METHOD 09/15/2024 4:30 PM EDT [facility] MCHC 30.4(L) 32.0 - 37.0 g/dL LAB HEMETOLOGY METHOD 09/15/2024 4:30 PM EDT [facility] RDW 14.6 11.0 - 15.0 % LAB HEMETOLOGY METHOD 09/15/2024 4:30 PM EDT [facility] Platelets 326 130 - 400 K/mcL LAB HEMETOLOGY METHOD 09/15/2024 4:30 PM EDT [facility] MPV 11.5(H) 7.0 - 11.0 FL LAB HEMETOLOGY METHOD 09/15/2024 4:30 PM EDT [facility] NRBC 0.0 <1.0 % LAB HEMETOLOGY METHOD 09/15/2024 4:30 PM EDT [facility] NRBC Absolute 0.00 <0.10 K/mcL LAB [facility]EMETOLOGY [facility] Neutrophils Relative 73.8 % LAB HEMETOLOGY METHOD 09/15/2024 4:30 PM EDT [facility] Lymphocytes Relative 16.9 % LAB HEMETOLOGY METHOD 09/15/2024 4:30 PM EDT [facility] Monocytes Relative 5.5 % LAB HEMETOLOGY METHOD 09/15/2024 4:30 PM EDT [facility] Eosinophils Relative 2.5 % LAB HEMETOLOGY METHOD [facility] Basophils Relative 0.8 % LAB HEMETOLOGY METHOD [facility] Immature Granulocytes Relative 0.5 % LAB HEMETOLOGY METHOD 09/15/2024 4:30 PM [facility] Neutrophils Absolute 7.86(H) 1.50 - 7.00 K/mcL LAB HEMETOLOGY METHOD [facility]24 [facility] Lymphocytes Absolute 1.80 1.00 - 5.00 K/mcL LAB HEMETOLOGY METHOD 09/15[facility]2024 [facility] Monocytes Absolute 0.59 0.20 - 1.00 K/mcL LAB HEMETOLOGY METHOD 09/15[facility]2024 [facility] Eosinophils Absolute 0.27 0.00 - 0.50 K/mcL LAB HEMETOLOGY METHOD 09/15/2024 4:30 PM [facility] Basophils Absolute 0.09 0.00 - 0.20 K/mcL LAB HEMETOLOGY METHOD 09/15/2024 4:30 PM [facility] Immature Granulocytes Absolute 0.05(H) 0.00 - 0.03 K/mcL LAB HEMETOLOGY METHOD 09/15/2024 4:30 PM EDT [facility] Blood Venous blood specimen / Unknown Venipuncture / Unknown 09/15/2024 2:25 PM EDT 09/15/2024 2:25 PM EDT Yonathan Aguiar [employer] LAB BLOOD ORDERABLES Final R esult Performing Organization Address [facility]/ZIP Co de Phone Number [facility] [address] [place] [address], [place] [phone] * Hemoglobin A1c (09/15/2024 2:25 PM EDT) Pathologist [facility] Hemoglobin A1C 5.5 <6.5 % LAB CHEMISTRY METHOD 09/15/2024 9:41 PM EDT [facility] Mean Bld Glu Estim. 111 mg/dL LAB CHEMISTRY METHOD 09/15/2024 9:41 PM EDT [facility] Blood Venous blood specimen / Unknown Venipuncture / Unknown 09/15/2024 2:25 PM EDT 09/15/2024 2:25 PM EDT Yonathan Aguiar [employer] LAB BLOOD ORDERABLES Final R esult Performing Organization Address [facility]/ZIP Co de Phone Number [facility] [address] [place] [address], [place] [phone] * (ABNORMAL) Comprehensive metabolic panel (09/15/2024 2:25 PM EDT) Sodium 143 133 - 145 mmol/L LAB CHEMISTRY METHOD 09/15/2024 5:51 PM EDT [facility] Potassium 3.7 3.5 - 5.5 mmol/L LAB CHEMISTRY METHOD 09/15/2024 5:51 PM EDT [facility] Chloride 105 96 - 110 mmol/L LAB CHEMISTRY METHOD 09/15/2024 5:51 PM [facility] CO2 30 21 - 32 mmol/L LAB CHEMISTRY METHOD 09/15/2024 5:51 PM [facility] Anion Gap 8 3 - 11 LAB CHEMISTRY METHOD 09/15/2024 5:51 PM [facility] Glucose 93 70 - 100 mg/dL LAB CHEMISTRY METHOD 09/15/2024 5:51 PM [facility] BUN 31(H) 5 - 25 mg/dL LAB CHEMISTRY METHOD 09/15/2024 5:51 PM [facility] Creatinine 0.96 0.50 - 1.10 mg/dL LAB CHEMISTRY METHOD 09/15/2024 5:51 PM [facility] eGFR 61 >=60 mL/min/1. 73m2 LAB CHEMISTRY METHOD 09/15/2024 5:51 PM [facility] Comment:Calculation based on the Chronic Kidney Disease Epidemiology Collaboration (CKD-EPI) equation refit without adjustment for race. BUN/Creatinine Ratio 32.3 LAB CHEMISTRY METHOD 09/15/2024 5:51 PM [facility] Calcium 9.0 8.5 - 10.5 mg/dL LAB CHEMISTRY METHOD 09/15/2024 5:51 PM [facility] AST (SGOT) 18 10 - 42 unit/L LAB CHEMISTRY METHOD 09/15/2024 5:51 PM [facility] ALT (SGPT) 33 10 - 60 unit/L LAB CHEMISTRY METHOD 09/15/2024 5:51 PM [facility] Alkaline Phosphatase 123(H) 42 - 121 unit/L LAB CHEMISTRY METHOD 09/15/2024 5:51 PM [facility] Total Protein 7.2 6.0 - 8.0 g/dL LAB CHEMISTRY METHOD 09/15/2024 5:51 PM [facility] Albumin 3.6 3.2 - 5.0 g/dL LAB CHEMISTRY METHOD 09/15/2024 5:51 PM EDT [facility] Total Bilirubin 0.5 0.0 - 1.4 mg/dL LAB CHEMISTRY METHOD 09/15/2024 5:51 PM EDT [facility] Blood Venous blood specimen / Unknown Venipuncture / Unknown 09/15/2024 2:25 PM EDT 09/15/2024 2:25 PM EDT Yonathan Aguiar [employer] LAB BLOOD ORDERABLES Final R esult [facility] [address] [place] [address], * Falls Risk Assessment (04/08/2023) Pathologist [facility] Falls Risk Assessment ABSTRACTED Historical Provider MD HEALTH MAINTENANCE Final Result * Depression Screening (04/08/2023) Pathologist [facility] Depression Screening ABSTRACTED Historical Provider MD HEALTH MAINTENANCE Final Result * Hepatitis C Screening (07/09/2012) Pathologist [facility] Hepatitis C Screening ABSTRACTED Historical Provider MD HEALTH MAINTENANCE Final Result from Last 3 Months or Most Recently Relevant to Health Maintenance Insurance [place] MEDICARE ADVANTAGE Care Teams Warp Drawer Relationship Specialty Start Date End Date Tim Atwood MD [address] [place] [address] PCP - General 06/24/22
--- OUTSIDE RECORDS SUMMARY | 2024-11-28 16:34 | XMS_ITS | Encounter Summary ---
Author Organization [facility] Address [address] [place] [address] Care Team Providers Care Director Private Name Role Phone Tim Atwood MD Primary Care Provider [phone] Encounter Details Date Type Department Care Team ([facility] Contact Info) Description 11/01/2024 Telephone Adult Medicine [facility] [place] [address] [place] [address] Tim Atwood MD [address] [place] [address] Social History Tobacco Use Types Packs/Day Years [...] on file Sexual Orientation Not on file documented as of this encounter Plan of Treatment Upcoming Encounters Date Type Department Care Team (Late Contact Info) Description 12/09/2024 12:45 PM EDT Ancillary Procedure [facility] - [facility] [address] [place] [phone] 01/13/2025 10:30 AM EDT Office Visit Vascular Surgery - [place] [address] [place] [phone] Hellen Mendoza MD [address] [place] [phone] documented as of this encounter Visit Diagnoses Not on filedocumented in this encounter Care Teams Director Private Relationship Specialty Start Date End Date Tim Atwood MD [address] [place] [address] PCP - General 06/24/22 documented as of this encounter
--- NOTE | 2024-11-28 16:43 | ED.BACK ---
HPI - Back Pain/Injury General Chief Complaint: Back Pain/Injury Stated Complaint: BACK PAIN,NO KNEW INJURY,X1M PER EMS Time Seen by Provider: 11/28/24 16:07 History of Present Illness HPI Narrative: Patient is 79 years old with a history of compression fracture to the lower back. Had imaging done on an outpatient basis. Had this problem previously noted on MRI done outpatient. Also had previous x-ray done. Complaining of continuing pain in the area. Patient has appointment with spine surgery in 4 days. Denies any bowel urinary incontinence. Denies any focal weakness. Denies any fever chills. Had no radiation of the pain. Patient is from home. Normally takes Tylenol symptoms seems improved. Today took Tylenol and did not get better. Came in for further evaluation. Related Data Home Medications ?Medication ?Instructions ?Recorded ?Confirmed acetaminophen 650 mg 1 tab PO Q8H PRN pain 02/17/22 02/17/22 tablet,extended release (8 Hour Pain Reliever) apixaban 5 mg tablet (Eliquis) 1 tab PO BID 02/17/22 02/17/22 betamethasone, augmented 0.05 % 1 appl topical BID PRN itch 02/17/22 02/17/22 topical cream calcium 500 mg (as 1 tab PO BID 02/17/22 02/17/22 carbonate)-vitamin D3 10 mcg (400 unit) tablet (Calcium 500 With D) clindamycin HCl 300 mg capsule 1 cap PO TID 02/17/22 02/17/22 diltiazem HCl 240 mg 1 cap PO DAILY 02/17/22 02/17/22 capsule,extended release 24 hr ibuprofen 600 mg tablet 1 tab PO Q8H PRN pain 02/17/22 02/17/22 lidocaine 5 % topical ointment 1 appl topical TID PRN Back Pain 02/17/22 02/17/22 tizanidine 2 mg tablet 1 tab PO TID PRN muscle spasm 02/17/22 02/17/22 torsemide 20 mg tablet 2 tab PO DAILY 02/17/22 02/17/22 Previous Rx's ?Medication ?Instructions ?Recorded tramadol 50 mg tablet 50 mg PO Q8H PRN pain, severe #9 02/18/22 tabs Allergies Allergy/AdvReac Type Severity Reaction Status Date / Time iodine Allergy Intermediate Rash Verified 11/28/24 16:08 oxycodone Allergy Intermediate Rash Verified 11/28/24 16:08 Penicillins Allergy Intermediate Rash Verified 11/28/24 16:08 pineapple Allergy Intermediate Rash Verified 11/28/24 16:08 seafood Allergy Intermediate Rash Verified 11/28/24 16:08 Sulfa (Sulfonamide Allergy Intermediate Rash Verified 11/28/24 16:08 Antibiotics) antibiotics Allergy Intermediate Rash Uncoded 11/28/24 16:08 Review of Systems Review of Systems: Positive back pain Yes all other systems are reviewed and are negative [facility] Past Medical History Attestation statement: The following information was validated with the patient. Social History Social History Advance Directives: Yes Advance Directives on File: Yes Advance Directives Date on File: 02/18/22 Physical Exam Exam: Exam: Appearance: Alert. Oriented X3. No acute distress. Eyes: Pupils equal, round and reactive to light. ENT: Pharynx normal. Neck: Normal inspection. Neck supple. No lymph nodes noted. No crepitus CVS: Normal heart rate and rhythm. Pulses normal. Normal S1 and S2 Respiratory: No respiratory distress. Breath sounds normal. No Wheezing. No rales Abdomen: Soft and nontender. No rigidity. No distention. good BS x4 Skin: Skin warm and dry. Normal skin color. Normal skin turgor. Extremities: No lower extremity edema. Neurovascular intact to all extremities. No Lacerations. No Rash Neuro: Oriented X 3. No motor deficit. No sensory deficit. Moving all extermities. No slurred speech Vital Signs: Vital Signs: Last Vital Signs Temp 98.4 F 11/28/24 16:02 Pulse 82 11/28/24 16:02 Resp 16 11/28/24 16:02 BP 119/53 L 11/28/24 16:02 Pulse Ox 100 11/28/24 16:02 O2 Del Method Room Air 11/28/24 16:02 BMI result Body Mass Index 33.3 Medications Administered Discontinued Medications Generic Name Dose Route Start Last Admin Trade Name Freq PRN Reason Stop Dose Admin Ketorolac Tromethamine 15 mg 11/28/24 16:42 11/28/24 17:21 Ketorolac Tromethamine 15 Mg/Ml Vial IVPUSH 11/28/24 16:43 15 mg ONCE ONE Administration Lorazepam 0.5 mg 11/28/24 16:42 11/28/24 17:21 Lorazepam 0.5 Mg Tablet PO 11/28/24 16:43 0.5 mg ONCE ONE Administration Medical Decision Making Medical Decision Making [facility] Narrative: No bowel urinary issues. No focal weakness. Patient from home. Will give a small dose of Toradol. I reviewed patient's previous labs showed a normal creatinine. Will also give a small dose of Ativan to help relax the muscles. Monitor. No evidence for bowel urinary incontinence no evidence for cauda equinus syndrome. Differential Diagnosis Differential Diagnoses: The differential diagnosis associated with the presentation includes Cauda equinus syndrome, fracture, musculoskeletal pain Admission/Observation Consideration of admission/observation: Escalation of care including admission/observation considered Lab Data [facility] Lab Attestation statement: I reviewed the patient's lab results. 11/28/24 16:58 11/28/24 16:58 Labs: Lab Results 11/28/24 11/28/24 Range/Units 16:53 16:58 WBC 9.9 (4.8-10.8) X10*3/uL RBC 4.74 (4.20-5.50) X10*6/uL Hgb 12.8 (12.0-16.0) g/dl Hct 39.3 (37.0-47.0) % MCV 82.9 (80.0-98.0) fL MCH 27.0 (27.0-33.0) pg MCHC 32.6 (31.0-35.0) g/dl RDW 14.7 (11.0-16.0) % Plt Count 274 (160-400) X10*3/uL MPV 10.8 (9.4-12.3) fL Immature Gran % (Auto) 0.2 (0.0-0.4) % Neut % (Auto) 76.9 H (45-73) % Lymph % (Auto) 15.3 L (20-40) % [place] % (Auto) 5.5 (2-11) % Eos % (Auto) 1.6 (0-4) % Baso % (Auto) 0.5 (0-2) % Lymph # (Auto) 1.5 (1.2-4.9) X10*3/uL [place] # (Auto) 0.6 (0.1-1.2) X10*3/uL Eos # (Auto) 0.2 (0.0-0.4) X10*3/uL Baso # (Auto) 0.1 (0.0-0.2) X10*3/uL Abs Immat Gran (auto) 0.02 (0.00-0.03) X10*3/uL Absolute Neuts (auto) 7.6 (2.0-8.3) x10*3/uL Absolute Nucleated RBC 0.000 (0.0-0.012) X10*3/uL Nucleated RBC % (auto) 0.0 (0.0-0.2) /100WBC Sodium 143 (135-145) mmol/L Potassium 3.3 (3.3-5.1) mmol/L Chloride 102 (96-108) mmol/L Carbon Dioxide 29 (22-29) mmol/L Anion Gap 15 (12-20) BUN 36 H (9-16) mg/dL Creatinine 1.04 (0.5-1.4) mg/dL Estim Creat Clear Calc 40.3 Estimated GFR 51 Random Glucose 105 (60-115) mg/dL Calcium 9.3 (8.4-10.2) mg/dL Urine Color Yellow Urine Appearance Clear Urine pH 7.0 (5.0-9.0) Ur Specific [place] 1.010 (1.005-1.025) Urine Protein Negative (Neg-Trace) mg/dL Urine Glucose (UA) Negative (Negative) mg/dL Urine Ketones Negative (Negative) mg/dL Urine Blood Negative (Negative) Urine Nitrite Negative (Negative) Ur Leukocyte Esterase Negative (Negative) Urine RBC 0-2 (0-2) /HPF Urine WBC 0-5 (0-5) /HPF Ur Squamous Epith Cells 0-2 (0-2) /HPF Urine Bacteria None Seen (None Seen) Hyaline Casts 0-2 (0-2) /LPF External Record Review Outpatient x-ray results reviewed Chronic Conditions History of back pain Social Determinants Patient?s care significantly limited by Social Determinants of Health including: Problems related to primary support group Discharge Plan Discharge Clinical Impression: Lumbar radiculopathy Patient Disposition: Home, Self-Care Instructions: Back Pain (ED) Prescriptions: No Action torsemide 20 mg tablet 2 tab PO DAILY tizanidine 2 mg tablet 1 tab PO TID PRN (Reason: muscle spasm) clindamycin HCl 300 mg capsule 1 cap PO TID diltiazem HCl 240 mg capsule,extended release 24hr 1 cap PO DAILY betamethasone, augmented 0.05 % cream 1 appl topical BID PRN (Reason: itch) acetaminophen [8 Hour Pain Reliever] 650 mg tablet extended release 1 tab PO Q8H PRN (Reason: pain) ibuprofen 600 mg tablet 1 tab PO Q8H PRN (Reason: pain) calcium carbonate-vitamin D3 [Calcium 500 With D] 500 mg-10 mcg (400 unit) tablet 1 tab PO BID lidocaine 5 % ointment 1 appl topical TID PRN (Reason: Back Pain) Eliquis 5 mg tablet 1 tab PO BID tramadol 50 mg tablet 50 mg PO Q8H PRN (Reason: pain, severe) Qty: 9 0RF Referrals: Tim Atwood MD [Primary Care Provider, Internal Medicine] - 12/01/24 Print Language: Faroese
[2024-11-28 17:02] LABS: MANUAL DIFF FLAG NO
[2024-11-28 17:05] LABS: Hematocrit 39.3 % (37.0-47.0); Hemoglobin 12.8 g/dl (12.0-16.0); Imm Gran Abs Auto 0.02 X10*3/uL (0.00-0.03); Imm Gran Pct Auto 0.2 % (0.0-0.4); Lymphocytes Absolute Auto 1.5 X10*3/uL (1.2-4.9); Mean Corpuscular HGB Conc 32.6 g/dl (31.0-35.0); Mean Corpuscular Hemoglobin 27.0 pg (27.0-33.0); Mean Corpuscular Volume 82.9 fL (80.0-98.0); NRBC Abs Auto 0.000 X10*3/uL (0.0-0.012); NRBC Pct Auto 0.0 /100WBC (0.0-0.2); Platelet Count 274 X10*3/uL (160-400); Red Blood Count 4.74 X10*6/uL (4.20-5.50); White Blood Count 9.9 X10*3/uL (4.8-10.8)
[2024-11-28 17:05] LABS: Appearance Urine Clear; Glucose Urine UA Negative (Negative); PH 7.0 (5.0-9.0); Specific Gravity - Urine 1.010 (1.005-1.025)
[2024-11-28 17:20] LABS: Anion Gap 15 (12-20); Blood Urea Nitrogen 36 mg/dL (9-16); Calcium 9.3 mg/dL (8.4-10.2); Carbon Dioxide 29 mmol/L (22-29); Chloride 102 mmol/L (96-108); Creatinine Clr Calc Pharmacy 40.3; Estimated Glomerular Filt Rate 51; Potassium 3.3 mmol/L (3.3-5.1); Sodium 143 mmol/L (135-145)
[2024-11-28 18:48] VITALS: BP 119/53; PULSE 82; RESP 16; TEMP 36.9; O2SAT 100
== END 2024-11-28 18:49 | disposition home or self-care (01) ==
PROVIDERS: Emergency Provider Emergency Medicine Emergency Medical Services; PCP Internal Medicine
DX: M54.16 Radiculopathy, lumbar region (principal); Z87.39 Personal history of other diseases of the musculoskeletal system and connective tissue; Z79.899 Other long term (current) drug therapy
CPT/HCPCS: 36415; 80048; 81001; 85025; 96374; 99283; 99284; J1885

== ENCOUNTER 2024-12-10 13:12 | Outpatient (REF) | payer BC, MEDICAID, SELFPAY ==
--- NOTE | ~2024-12-10 | XR_ITS ---
EXAMINATION: XR LUMBOSACRAL SPINE CLINICAL INFORMATION: S32.009A - Unspecified fracture of unspecified lumbar vertebra, initial ... COMPARISON: None available. TECHNIQUE: AP, and lateral: Flexion, neutral, and extension view x-rays of the lumbar spine. FINDINGS: There is mild levoscoliosis. There is vertebra plana probably at L4 and superior endplate fracture of a sacralized L5 segment. L1-2 demonstrates stable grade 1 anterolisthesis. L2-3 demonstrates subtle retrolisthesis without instability. There is grade 1 anterolisthesis at L4-5 without instability. Mild disc space narrowing and endplate osteophytes are noted in the lumbar spine. There is facet sclerosis and osteophytes throughout the lumbar spine. There is abutment and subcortical sclerosis involving spinous processes L1, L2, L3, and L4. XR/XR lumbar spine 2-3V IMPRESSION: Vertebra plana presumed L4. Moderate superior endplate compression fracture of a sacralized L5. Multilevel listhesis without instability. Multilevel degenerative changes. Electronically signed by: Rodri Mccallum MD 12/10/2024 03:51 PM EDT
== END 2024-12-10 13:13 | disposition home or self-care (01) ==
LOC: HO.HOSX 13:12
PROVIDERS: PCP Internal Medicine; Visit Provider Neurological Surgery
DX: S32.058D Other fracture of fifth lumbar vertebra, subsequent encounter for fracture with routine healing (principal); W19.XXXD Unspecified fall, subsequent encounter
CPT/HCPCS: 72100

== ENCOUNTER 2024-12-10 13:12 | Outpatient (AMB) | payer BC, MEDICAID, SELFPAY ==
--- OUTSIDE RECORDS SUMMARY | 2024-12-09 12:45 | XMS_ITS | Encounter Summary ---
Author Organization [facility] Address [address] [place] [address] Care Team Providers Care Hinging Machine Operator Name Role Phone Tim Atwood MD Primary Care Provider [phone] Reason for Visit * Imaging (Routine) - Authorized Specialty Diagnoses / Procedures Referred By Contac t Referred To Contact Diagnoses Venous insufficiency Varicose veins of bilateral lower extremities with pain Procedures Vascular US duplex lower extremity venous insufficiency bilateral Hellen Mendoza MD [address] [place] [address] Phone: tel: fax: [facility] Referral ID Status Reason Start Date Expiration Date V isits Requested Visits Authorized [id number] Authorized 06/23/2024 06/23/2025 1 1 Encounter Details Date Type Department Care Team (Latest Contact Info) Description 12/09/2024 12:45 PM EDT Ancillary Procedure [facility] - [facility] [address] [facility] [address] [place] [phone] Venous insufficiency; Varicose veins of bilateral lower extremities with pain Social History Tobacco Use Types Packs/Day Years [...] Care Team (Late st Contact Info) Description 01/13/2025 10:30 AM EDT Office Visit Vascular Surgery - [place] [address] [place] [phone] Hellen Mendoza MD [address] [place] [phone] Pending Results Name Type Priority Associated Diagnoses Date/Time Vascular US duplex lower extremity venous insufficiency bilateral Vascular Ultrasound Routine Venous insufficiency Varicose veins of bilateral lower extremities with pain 12/09/2024 1:08 PM EDT documented as of this encounter Visit Diagnoses Diagnosis Venous insufficiency Unspecified venous (peripheral) insufficiency Varicose veins of bilateral lower extremities with pain documented in this encounter Care Teams Hinging Machine Operator Relationship Specialty Start Date End Date Tim Atwood MD [address] [place] [address] PCP - General 06/24/22 documented as of this encounter
--- OUTSIDE RECORDS SUMMARY | 2024-12-10 13:15 | XMS_ITS | Clinical Summary ---
Author Organization [facility] [address] [place] [address] [place] [phone] Phone Care Team Providers Care Special Police Officer Name Role Phone Tim Atwood MD Primary Care Provider [phone] Allergies Active Allergy Reactions Criticality Noted Date [...] 2 (two) times a day. [facility] Active dilTIAZem CD (CARDIZEM CD) 240 mg 24 hr capsule Take 1 capsule (240 mg total) by mouth 1 (one) time each day. Pres[facility] Active torsemide (DEMADEX) 20 mg tablet Take 1 tablet (20 mg total) by mouth 2 (two) times a day. Prescribed by [facility] Active acetaminophen (TYLENOL [...] both lower extremities 10/28/2022 Paroxysmal atrial fibrillation (CMS/HCC V24, CMS /HCC V28) 10/28/2022 Venous (peripheral) insufficiency 04/17/2005 Encounters Date Type Department Care Team Description 12/09/2024 12:45 PM EDT Ancillary Procedure [facility] [address] [place] [id number] Venous insufficiency; Varicose veins of bilateral lower extremities with pain 11/15/2024 4:14 PM EDT - 11/15/2024 11:59 PM EDT Hospital Encounter Radiology Department - [address] [phone] Chronic low back pain, unspecified back pain laterality, unspecified whether sciatica present Discharge Disposition: Home or Self Care 11/03/2024 Telephone Adult Medicine [address] [phone] Tim Atwood MD 11/01/2024 Telephone Adult Medicine [address] [phone] Tim Atwood MD 11/01/2024 Telephone Adult Medicine [address] [phone] Tim Atwood MD 10/15/2024 1:05 PM EDT - 10/15/2024 11:59 PM EDT Hospital Encounter XRAY - [address] [phone] Chronic low back pain, unspecified back pain laterality, unspecified whether sciatica present Discharge Disposition: Home or Self Care 10/15/2024 12:30 PM EDT Office Visit [address] [phone] Tim Atwood MD Chronic low back pain, unspecified back pain laterality, unspecified whether sciatica present (Primary Dx); Venous (peripheral) insufficiency; Paroxysmal atrial fibrillation (CMS/HCC V24, CMS/HCC V28); Swelling of lower extremity 10/08/[address] [phone] Tim Atwood MD 09/15/2024 1:15 PM EDT Office Visit [address] [phone] Yonathan Aguiar NP Cellulitis of left lower extremity (Primary Dx); [...] AM EDT Office Visit Vascular Surgery - [place] [address] [place] [phone] Hellen Mendoza MD [address] [place] [phone] Health Maintenance Due Date Last Done [...] Signed Date: 11/16/2024 10:03 ET Workstation ID: [id number] Transcribed By: Self Edit Transcribed Date: 11/16/2024 09:43 ET Procedure Note Sherri Freitas MD - 11/16/2024 MRI of the lumbosacral spine without intravenous contrast. History chronic low back pain. Examination was performed on 1.5 Amlena magnet without administration ofintravenous contrast. No prior [...] Signed Date: 11/16/2024 10:03 ET Workstation ID: [id number] Transcribed By: Self Edit Transcribed Date: 11/16/2024 [...] Signed Date: 10/15/2024 16:18 ET Workstation ID: [id number] Transcribed By: Self Edit Transcribed Date: 10/15/2024 [...] levels. There is grade 1 L2 on [id number] of L3 on L4 grade 1 retrolisthesis. [...] Signed Date: 10/15/2024 16:18 ET Workstation ID: [id number] Transcribed By: Self Edit Transcribed Date: 10/15/2024 16:07 ET us Tim Atwood MD IMG XR PROCEDURES Final Res ult * Thyroid stimulating hormone with reflex to free t4 and free t3 (09/15/2024 2:25 PM EDT) TSH 2.88 0.40 - 4.00 mcIU/mL LAB CHEMISTRY METHOD 09/15/2024 6:21 PM EDT [facility] Blood Venous blood specimen / Unknown Venipuncture / Unknown 09/15/2024 2:25 PM EDT 09/15/2024 2:25 PM EDT Yonathan Aguiar MATHEMATICS IMPROVEMENT TEACHER LAB BLOOD ORDERABLES Final R esult [facility] [address] [place] [address], [place] [phone] * Lipid panel with reflex to direct LDL (09/15/2024 2:25 PM EDT) Cholesterol 159 0 - 200 mg/dL LAB CHEMISTRY METHOD 09/15/2024 5:51 PM EDT [facility] Triglycerides 132 0 - 150 mg/dL LAB CHEMISTRY METHOD 09/15/2024 5:51 PM EDT [facility] HDL 53 >=40 mg/dL LAB CHEMISTRY METHOD 09/15/2024 5:51 PM EDT [facility] LDL Calculated 80 0 - 100 mg/dL LAB CHEMISTRY METHOD 09/15/2024 5:51 PM EDT [facility] VLDL Cholesterol Jean-Pierre 26.4 mg/dL LAB CHEMISTRY METHOD 09/15/2024 5:51 PM EDT [facility] Non HDL Chol. (LDL+VLDL) 106 <145 mg/dL LAB CHEMISTRY METHOD 09/15/2024 5:51 PM EDT [facility] Chol/HDL Ratio 3.0 0.0 - 4.4 LAB CHEMISTRY METHOD 09/15/2024 5:51 PM EDT [facility] Blood Venous blood specimen / Unknown Venipuncture / Unknown 09/15/2024 2:25 PM EDT 09/15/2024 2:25 PM EDT Yonathan Aguiar [employer]HEMATICS IM[employer]OVEMENT TEACHER LAB BLOOD ORDERABLES Final R esult [facility] [address] [place] [address], * (ABNORMAL) CBC auto differential (09/15/2024 2:25 PM EDT) [facility] Signature WBC 10.7 4.8 - 10.8 K/mcL LAB HEMETOLOGY METHOD 09/15/2024 4:30 PM EDT [facility] RBC 4.80 3.80 - 4.80 M/mcL LAB HEMETOLOGY METHOD 09/15/2024 4:30 PM EDT [facility] Hemoglobin 12.8 11.5 - 16.0 g/dL LAB HEMETOLOGY METHOD 09/15/2024 4:30 PM EDT [facility] Hematocrit 42.1 35.0 - 47.0 % LAB HEMETOLOGY METHOD 09/15/2024 4:30 PM EDT [facility] MCV 87.0 79.0 - 98.0 FL LAB HEMETOLOGY METHOD 09/15/2024 4:30 PM EDT [facility] MCH 26.4(L) 27.0 - 32.0 pcg LAB HEMETOLOGY METHOD 09/15/2024 4:30 PM EDT [facility] MCHC 30.4(L) 32.0 - 37.0 g/dL LAB HEMETOLOGY METHOD 09/15/2024 4:30 PM EDT [facility] RDW 14.6 11.0 - 15.0 % LAB HEMETOLOGY METHOD 09/15/2024 4:30 PM EDT [facility] Platelets 326 130 - 400 K/mcL LAB HEMETOLOGY METHOD 09/15/2024 4:30 PM EDT [facility] MPV 11.5(H) 7.0 - 11.0 FL LAB HEMETOLOGY METHOD 09/15/2024 4:30 PM EDT [facility] NRBC 0.0 <1.0 % LAB HEMETOLOGY METHOD 09/15/2024 4:30 PM EDT [facility] NRBC Absolute 0.00 <0.10 K/mcL LAB [facility]EMETOLOGY [facility] Neutrophils Relative 73.8 % LAB HEMETOLOGY METHOD 09/15/2024 4:30 PM EDT [facility] Lymphocytes Relative 16.9 % LAB HEMETOLOGY METHOD 09/15/2024 4:30 PM EDT [facility] Monocytes Relative 5.5 % LAB HEMETOLOGY METHOD 09/15[facility]2024 4:[facility] Eosinophils Relative 2.5 % LAB HEMETOLOGY METHOD 09/15/2024 4:30 PM [facility] Basophils Relative 0.8 % LAB HEMETOLOGY METHOD 09/15/2024 4:30 PM [facility] Immature Granulocytes Relative 0.5 % LAB HEMETOLOGY METHOD 09/15/2024 4:30 PM [facility] Neutrophils Absolute 7.86(H) 1.50 - 7.00 K/mcL LAB HEMETOLOGY METHOD 09/15/2024 4:30 PM [facility] Lymphocytes Absolute 1.80 1.00 - 5.00 K/mcL LAB HEMETOLOGY METHOD 09/15/2024 4:30 PM EDT [facility] Monocytes Absolute 0.59 0.20 - 1.00 K/mcL LAB HEMETOLOGY METHOD 09/15/2024 4[facility] Eosinophils Absolute 0.27 0.00 - 0.50 K/mcL LAB HEMETOLOGY METHOD 09/15/2024 4:30 PM [facility] Basophils Absolute 0.09 0.00 - 0.20 K/mcL LAB HEMETOLOGY METHOD 09/15/2024 4:30 PM EDT [facility] Immature Granulocytes Absolute 0.05(H) 0.00 - 0.03 K/mcL LAB HEMETOLOGY METHOD 09/15/2024 4:30 PM EDT [facility] Blood Venous blood specimen / Unknown Venipuncture / Unknown 09/15/2024 2:25 PM EDT 09/15/2024 2:25 PM EDT Yonathan Aguiar MATHEMATICS IMPROVEMENT TEACHER LAB BLOOD ORDERABLES Final R esult Performing Organization Address City/[facility]/ZIP Co de Phone Number [facility] [address] [place] [address], [place] [phone] * Hemoglobin A1c (09/15/2024 2:25 PM EDT) Pathologist [facility] Hemoglobin A1C 5.5 <6.5 % LAB CHEMISTRY METHOD 09/15/2024 9:41 PM EDT [facility] Mean Bld Glu Estim. 111 mg/dL LAB CHEMISTRY METHOD 09/15/2024 9:41 PM EDT [facility] Blood Venous blood specimen / Unknown Venipuncture / Unknown 09/15/2024 2:25 PM EDT 09/15/2024 2:25 PM EDT Yonathan Aguiar [employer]HEMATICS IMPROVEMENT TEACHER LAB BLOOD ORDERABLES Final R esult Performing Organization Address City/[facility]/ZIP Co de Phone Number [facility] [address] [place] [address], [place] [phone] * (ABNORMAL) Comprehensive metabolic panel (09/15/2024 2:25 PM EDT) Pathologist [facility] Sodium 143 133 - 145 mmol/L LAB CHEMISTRY METHOD 09/15/2024 5:51 PM EDT [facility] Potassium 3.7 3.5 - 5.5 mmol/L LAB CHEMISTRY METHOD 09/15/2024 5:51 PM EDT [facility] Chloride 105 96 - 110 mmol/L LAB CHEMISTRY METHOD 09/15/2024 5:51 PM [facility] CO2 30 21 - 32 mmol/L LAB CHEMISTRY METHOD 09/15/2024 5:51 PM [facility] Anion Gap 8 3 - 11 LAB CHEMISTRY METHOD 09/15/2024 5:51 PM [facility] Glucose 93 70 - 100 mg/dL LAB CHEMISTRY METHOD 09/15/2024 5:51 PM [facility] BUN 31(H) 5 - 25 mg/dL LAB CHEMISTRY METHOD 09/15/2024 5:51 PM [facility] Creatinine 0.96 0.50 - 1.10 mg/dL LAB CHEMISTRY METHOD 09/15/2024 5:51 PM [facility] eGFR 61 >=60 mL/min/1. 73m2 LAB CHEMISTRY METHOD 09/15/2024 5:51 PM [facility] Comment:Calculation based on the Chronic Kidney Disease Epidemiology Collaboration (CKD-EPI) equation refit without adjustment for race. BUN/Creatinine Ratio 32.3 LAB CHEMISTRY METHOD 09/15/2024 5:51 PM [facility] Calcium 9.0 8.5 - 10.5 mg/dL LAB CHEMISTRY METHOD 09/15/2024 5:51 PM [facility] AST (SGOT) 18 10 - 42 unit/L LAB CHEMISTRY METHOD 09/15/2024 5:51 PM [facility] ALT (SGPT) 33 10 - 60 unit/L LAB CHEMISTRY METHOD 09/15/2024 5:51 PM [facility] Alkaline Phosphatase 123(H) 42 - 121 unit/L LAB CHEMISTRY METHOD 09/15/2024 5:51 PM [facility] Total Protein 7.2 6.0 - 8.0 g/dL LAB CHEMISTRY METHOD 09/15/2024 5:51 PM [facility] Albumin 3.6 3.2 - 5.0 g/dL LAB CHEMISTRY METHOD 09/15/2024 5:51 PM EDT [facility] Total Bilirubin 0.5 0.0 - 1.4 mg/dL LAB CHEMISTRY METHOD 09/15/2024 5:51 PM EDT [facility] Blood Venous blood specimen / Unknown Venipuncture / Unknown 09/15/2024 2:25 PM EDT 09/15/2024 2:25 PM EDT Yonathan Aguiar MATHEMATICS IMPROVEMENT TEACHER LAB BLOOD ORDERABLES Final R esult [facility] [address] [place] [address], [place] [phone] * Falls Risk Assessment (04/08/2023) Pathologist [facility] Falls Risk Assessment ABSTRACTED Historical Provider MD HEALTH MAINTENANCE Final Result * Depression Screening (04/08/2023) Depression Screening ABSTRACTED [facility] Provider MD HEALTH MAINTENANCE Final Result * Hepatitis C Screening (07/09/2012) Pathologist [facility] Hepatitis C Screening ABSTRACTED Historical Provider HEALTH MAINTENANCE Final Result from Last 3 Months or Most Recently Relevant to Health Maintenance [place] Care Teams Special Police Officer Relationship Specialty Start Date End Date Tim Atwood MD [address] [place] [address] PCP - General 06/24/22
--- NOTE | 2024-12-10 13:24 | A.SPINEOV_ITS ---
Vital Signs 12/10/24 13:36 Height 5 ft 1 in Weight 164 lb BMI 31.0 Intake Visit Reasons: lower back pain Intake Note: Ms. Weinstein is here today c/o low back pain. 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 Allergies iodine Allergy (Intermediate, Verified 12/10/24 13:37) Rash oxycodone Allergy (Intermediate, Verified 12/10/24 13:37) Rash Penicillins Allergy (Intermediate, Verified 12/10/24 13:37) Rash pineapple Allergy (Intermediate, Verified 12/10/24 13:37) Rash seafood Allergy (Intermediate, Verified 12/10/24 13:37) Rash Sulfa (Sulfonamide Antibiotics) Allergy (Intermediate, Verified 12/10/24 13:37) Rash antibiotics Allergy (Intermediate, Uncoded 11/28/24 16:08) Rash Physical Exam Vital Signs: BMI result Body Mass Index 31.0 Assessment & Plan Assessment & Plan (1) Lumbar vertebral fracture: Code(s): S32.009A - Unspecified fracture of unspecified lumbar vertebra, initial encounter for closed fracture Category: Medical Qualifiers: Lumbar vertebra fracture level: L5 Fracture type: closed Fracture morphology: burst- stable Fracture healing: with routine healing Plan Dear colleague Thank you for referring Suzanne Weinstein to the office today with a chief complaint of back pain and bilateral leg pain. HPI: This 79-year-old female had a traumatic fracture of the L5 vertebral body after a fall in 2021. Since then she has been in terrible back pain radiating down both lateral part of the thighs, right more than left. Walking and standing increases the pain. Sitting down improves the symptoms. In and out bad is very painful. Laying down is tolerable. She takes Tylenol for pain control. She went to Physical therapy, who advised her to stretch and rotate the spine which resulted in significant radiating pain into her legs. Ambulated with a walker improves the symptoms. She denies weakness or numbness. In addition to the physical therapy and Tylenol she had multiple injections. She was offered a kyphoplasty, which he refused. PMH: AFib, Tonsillectomy, bilateral knee replacement, osteoporosis Medications: Eliquis, vitamin-D and calcium, diltiazem, ibuprofen, tizanidine, torsemide, tramadol Allergies: Penicillin, sulfa drugs, hydromorphone, Bactrim Social history: Lives alone Physical Exam: Height 5'1 weight on his 64 lb. She walks in a flexed position with a walker. There are no deficits of motor and sensation on exam. Radiological Studies: MRI done at [facility] on 11/15/2024 shows an L5 burst fracture with bone fragments into the spinal canal causing severe spinal stenosis and foraminal stenosis Impression/Plan: This patient is suffering from back pain and neurogenic claudication due to a old L5 burst fracture. I would like to obtain a standing x-ray of the lumbar spine and a CT scan to assess if I can help this patient with surgery. She will return to the my office after the CT scan is done. Thank you for allowing me to participate in your patients care. total time spent was 50 minutes in counseling ,coordination of plan, personal review of imaging, surgical decision making and subsequent plan Alvaro Bradford MD, PhD Spine Fellowship Trained Neurosurgeon Director, [facility] Orders: Orders XR lumbar spine 2-3V Today S32.009A - Unspecified fracture of unspecified lumbar vertebra, initial encounter for closed fracture CT lumbar spine wo IV con Today S32.009A - Unspecified fracture of unspecified lumbar vertebra, initial encounter for closed fracture Coding Level of Care Code New Pt Level 4 (41623) Diagnoses Lumbar vertebral fracture S32.009A Lumbar vertebra fracture level: L5 Fracture type: closed Fracture morphology: burst- stable Fracture healing: with routine healing
[2024-12-10 13:36] VITALS: BMI 31.0
== END 2024-12-10 14:39 | disposition home or self-care (01) ==
LOC: HO.HNS 13:13
PROVIDERS: PCP Internal Medicine; Visit Provider Neurological Surgery
DX: M51.362 Other intervertebral disc degeneration, lumbar region with discogenic back pain and lower extremity pain (principal); S32.009S Unspecified fracture of unspecified lumbar vertebra, sequela
CPT/HCPCS: 99204

== ENCOUNTER → 2024-12-10 14:39 | Outpatient (BNV) | payer BC, MEDICAID, SELFPAY | PROVIDERS: PCP Internal Medicine; Visit Provider Radiology Diagnostic Radiology | DX: S32.020A Wedge compression fracture of second lumbar vertebra, initial encounter for closed fracture (principal) | CPT/HCPCS: 72100 ==

== ENCOUNTER 2025-02-04 09:24 | Outpatient (REF) | payer BC, MEDICAID, SELFPAY ==
--- NOTE | ~2025-02-04 | CT_ITS ---
EXAMINATION: CT LUMBAR SPINE WITHOUT CONTRAST CLINICAL INFORMATION: S32.009A - Unspecified fracture of unspecified lumbar vertebra, initial COMPARISON: None available. TECHNIQUE: Axial CT was performed between lower T9 and the lower sacrum. Coronal and sagittal reformatted images were generated from the original axial data set. ALARA: The examination used one or more of the following radiation dose reduction techniques: Automated exposure control, iterative reconstruction, and/or adjustment of mA and/or KV. FINDINGS: Lung bases are clear. There is mild atherosclerotic calcification in the aorta and common iliac arteries. There is moderate diverticulosis in the sigmoid colon. There is moderate degenerative change in the left greater than right SI joints. There is 11 degrees levoscoliosis. There are 5 non-rib bearing lumbar segments. T12-L1: There is mild grade 1 retrolisthesis and mild loss of disc height with broad-based disc bulge with moderate right and mild left foraminal narrowing. L1-L2: There is mild grade 1 retrolisthesis. Disc osteophyte complex results in gfto-[id number]-fuqyubex spinal stenosis. There is mild facet osteoarthritis. There is mild right and moderate left foraminal narrowing. L2-L3: There is circumferential broad-based disc bulge and moderate to severe facet osteoarthritis. There is mild foraminal narrowing, greater on the left. L3-L4: There is a lytic area in anterior L3 vertebral body measuring 5 x 15 mm appearing AP by cc). There is vertebral plana at L4. There is moderate loss of disc height. Disc osteophyte complex and facet arthropathy result in severe spinal stenosis and severe bilateral foraminal narrowing. L4-L5: There is a lytic area with destruction of the anterosuperior L5 vertebral body likely with a fracture, suspicious for pathologic fracture. There is sclerosis of the remaining intact posterior inferior L5 vertebral body. Disc height is maintained. There is subtle grade 1 anterolisthesis. There is mild to moderate spinal stenosis and right greater than left subarticular zone narrowing. There is severe facet osteoarthritis. There is mild bilateral foraminal narrowing. L5-S1: Disc height is preserved. There is no gross spinal stenosis or foraminal narrowing. CT/CT lumbar spine wo IV con IMPRESSION: L3 demonstrates a lytic area in the anterior inferior vertebral body that could be malignant in nature, but could be degenerative as well. L4 vertebra plana. Anterior superior half of L5 demonstrates severe lytic changes and there are sclerotic changes in the posterior inferior half of L5 with concern for pathologic fracture in the lytic region raising question of malignancy including metastatic disease or myeloma. T12-L1: There is moderate right and mild left foraminal narrowing. L1-L2: There is agus-fd-oamszbum spinal stenosis with mild right and moderate left foraminal narrowing. L3-L4: There is severe spinal stenosis and severe bilateral foraminal narrowing. L4-L5: There is mild to moderate spinal stenosis and right greater than left subarticular zone narrowing. Electronically signed by: Rodri Mccallum MD 02/04/2025 11:10 AM EST
--- OUTSIDE RECORDS SUMMARY | 2025-02-04 10:24 | XMS_ITS | Clinical Summary ---
Author Organization [facility] [address] [place] [address] [place] [phone] Phone Care Team Providers Care Direct Marketing Representative Name Role Phone Tim Atwood MD Primary Care Provider [phone] Allergies Active Allergy Reactions Criticality Noted Date [...] 2 (two) times a day. Prescribed by [facility] W Active dilTIAZem CD (CARDIZEM CD) 240 mg 24 hr capsule Take 1 capsule (240 mg total) by mouth 1 (one) time each day. Prescribed by [facility] W Active torsemide (DEMADEX) 20 mg tablet Take 1 tablet (20 mg total) by mouth 2 (two) times a day. Prescribed by [facility] ANDRE W Active [...] both lower extremities 10/28/2022 Paroxysmal atrial fibrillation ([facility] V24, [facility] V28) 10/28/2022 Venous (peripheral) insufficiency 04/17/2005 Encounters Date Type Department Care Team Description 01/13/2025 11:00 AM EDT Office Visit Vascular Surgery - [place] [address] [place] [address] Hellen Mendoza MD Varicose veins of bilateral lower extremities with pain (Primary Dx) 12/15/2024 Telephone Adult Medicine [facility] [address] [place] [phone] Tim Atwood MD 12/09/2024 12:45 PM EDT Ancillary Procedure [facility] [address] [place] [phone] Venous insufficiency; Varicose veins of bilateral lower extremities with pain 11/15/2024 4:14 PM EDT - 11/15/2024 11:59 PM EDT Hospital Encounter Radiology Department - [id number] [place] [address] Chronic low back pain, unspecified back pain laterality, unspecified whether sciatica present Discharge Disposition: Home or Self Care from Last 3 Months Surgical History Surgery Date Site/Laterality Comments TONSILLECTOMY PROCEDURE: HISTORICAL TONSILLECTOMY Medical History Medical History Date Comments Paroxysmal atrial fibrillati on ([facility] V24, [facility] V28) DX:Paroxysmal atrial fibrill ation (HCC) Osteoporosis DX:Osteoporosis Family History Medical History Relation Name Comments Coronary artery disease Father Other: bladder cancer Mother Blindness Neg Hx Cataracts Neg Hx Glaucoma Neg Hx Macular degeneration Neg Hx Strabismus Neg Hx Relation Name Status Comments Father (Age 86) Mother Social History Tobacco Use Types Packs/Day Years Used Date Smoking Tobacco: Former Cigarettes 0 Q uit: 03/24/1975 Smokeless Tobacco: Never Alcohol [...] Sign Reading Time Taken Comments Blood Pressure 123/76 01/13/2025 11:04 AM EDT Pulse 97 01/13/2025 11:04 AM EDT Temperature 36.4 C (97.6 F) 10/15/2024 12:27 PM EDT Respiratory Rate 14 09/15/2024 1:19 PM EDT Oxygen Saturation 98% 09/15/2024 1:19 PM EDT Inhaled Oxygen Concentration - - Weight 74.8 kg (164 lb 12.8 oz) 025 11:04 AM EDT Height 152.4 cm (5') 10/15/2024 12:27 PM EDT Body Mass Index 32.19 10/15/2024 12:27 PM EDT Plan of Treatment Health Maintenance Due Date Last Done Comments [...] Visit 04/08/2024 04/08/2023 COVID-19 Vaccine (1 - 2024-2 6 season) 2024 Influenza Vaccine (#1) 2024 Cholesterol [...] Procedure Name Priority Date/Time Associated Diagnosis Comments EXTERNAL XRAY REPORT 12/10/2024 EXTERNAL XRAY REPORT 12/10/2024 VAS US DUPLEX LOWER EXT VENOUS INSUFFICIENCY BILATERAL Routine 12/09/2024 1:08 PM EDT Venous insufficiency Varicose veins of bilateral lower extremities with pain MR LUMBAR SPINE WO CONTRAST Routine 11/15/2024 5:27 PM EDT Chronic low back pain, unspecified back pain laterality, unspecified whether sciatica present LIPID PANEL WITH REFLEX TO DIRECT LDL Routine 09/15/2024 2:25 PM EDT Encounter for screening for cardiovascular disorders Paroxysmal atrial fibrillation (CMS/HCC V24, CMS/HCC V28) Venous (peripheral) insufficiency Prediabetes DEPRESSION SCREENING Routine 04/08/2023 FALLS RISK ASSESSMENT Routine 04/08/2023 HEPATITIS C SCREENING Routine 07/09/2012 from Last 3 Months or Most Recently Relevant to Health Maintenance Results * External Xray Report (12/10/2024) Only the most recent of2 resultswithin the time period is included. Anatomical Region Laterality Modality Radiographic Lilly ging us Provider [facility] XR PROCEDURES Final Result * Vascular US duplex lower extremity venous insufficiency bilateral (12/09/2024 1:08 PM EDT) Left GSK estrella 0.43 cm CV V[facility] LAB Left GSDC estrella 0.35 cm CV [facility] Left GSMT estrella 0.58 cm CV VAS LAB Left GSPC etsrella 0.46 cm CV V[facility] LAB Left GSPT estrella 0.38 cm CV VAS LAB Left SFJ Diameter 0.77 cm CV VAS LAB Left SSMC estrella 0.29 cm CV VAS LAB Left SSPC estrella 0.28 cm CV VAS LAB Right GSK estrella 0.48 cm CV VAS LAB Right GSDC estrella 0.25 cm CV VAS LAB Right GSMT estrella 0.42 cm CV VAS LAB Right GSPC estrella 0.34 cm CV VAS LAB Right SFJ Diameter 0.84 cm CV VAS LAB Right SSMC estrella 0.29 cm CV V[facility] LAB Right SSPC estrella 0.31 cm CV V[facility] Right GSMT reflux 4,111 ms CV [facility] Right GSK reflux 3,977 ms CV [facility] Left GSK reflux 4,061 ms CV [facility] Left GSPC reflux 4,200 ms CV [facility] Left GSDC reflux 3,844 ms CV [facility] Left SSPC reflux 3,372 ms CV [facility] Right GSPC reflux 4,100 ms CV [facility] LAB Anatomical Region Laterality Modality Vascular, Abdomen Ultrasound Narrative 12/10/2024 3:39 PM EDT Right No right deep vein thrombosis. Right deep veins are competent. Right superficial veins have no thrombosis. Right GSV has significant reflux at the mid thigh, knee and upper calf location with a maximal reflux time greater than 4.1 seconds. Right SSV has no significant reflux. Left No left deep vein thrombosis. Left deep veins are competent. Left superficial veins have no thrombosis. Left GSV has significant reflux at the knee and calf locations with a maximal reflux time greater than 4.2 seconds. Left SSV has significant reflux with reflux time 3.4 seconds. Right Venous Insufficiency Duplex The exam was performed with the patient in reverse Trendelenburg. : No evidence of deep vein thrombosis in the common femoral, deep femoral, proximal femoral, mid femoral, distal femoral, popliteal, greater saphenous, small saphenous, posterior tibial and peroneal veins of the right leg. The vessels showed compressibility. Interrogation showed phasic and spontaneous Doppler signals. Left Venous Insufficiency Duplex The exam was performed with the patient in reverse trendelenburg. No evidence of deep vein thrombosis in the common femoral, deep femoral, proximal femoral, mid femoral, distal femoral, popliteal, greater saphenous, small saphenous, posterior tibial and peroneal veins of the left leg. The vessels showed compressibility. Interrogation showed phasic and spontaneous Doppler signals. us Hellen Mendoza MD CV VASCULAR PROCEDURES Fi nal Result * MR Lumbar Spine wo Contrast (11/15/2024 [...] Signed Date: 11/16/2024 10:03 ET Workstation ID: [id number] Transcribed By: Self Edit Transcribed Date: 11/16/2024 09:43 ET Procedure Note Sherri Freitsa MD - 11/16/2024 MRI of the lumbosacral [...] Signed Date: 11/16/2024 10:03 ET Workstation ID: [id number] Transcribed By: Self Edit Transcribed Date: 11/16/2024 09:43 ET us Tim Atwood MD IM MRI PROCEDURES Final Re sult * Lipid panel with reflex to direct LDL (09/15/2024 2:25 PM EDT) Cholesterol 159 0 - 200 mg/dL LAB CHEMISTRY METHOD 09/15/2024 5:51 PM EDT [facility] Triglycerides 132 0 - 150 mg/dL LAB CHEMISTRY METHOD 09/15/2024 5:51 PM EDT [facility] HDL 53 >=40 mg/dL LAB CHEMISTRY METHOD 09/15/2024 5:51 PM EDT [facility] LDL Calculated 80 0 - 100 mg/dL LAB CHEMISTRY METHOD 09/15/2024 5:51 PM EDT [facility] VLDL Cholesterol Jean-Pierre 26.4 mg/dL LAB CHEMISTRY METHOD 09/15/2024 5:51 PM EDT [facility] Non HDL Chol. (LDL+VLDL) 106 <145 mg/dL LAB CHEMISTRY METHOD 09/15/2024 5:51 PM EDT [facility] Chol/HDL Ratio 3.0 0.0 - 4.4 LAB CHEMISTRY METHOD 09/15/2024 5:51 PM EDT [facility] Blood Venous blood specimen / Unknown Venipuncture / Unknown 09/15/2024 2:25 PM EDT 09/15/2024 2:25 PM EDT Yonathan Aguiar DIRECTOR HR COMMUNICATIONS LAB BLOOD ORDERABLES Final R esult [facility] [address] [place] [address], * Falls Risk Assessment (04/08/2023) Pathologist [facility] Falls Risk Assessment ABSTRACTED Historical Provider MD HEALTH MAINTENANCE Final Result * Depression Screening (04/08/2023) Depression Screening ABSTRACTED Historical Provider MD HEALTH MAINTENANCE Final Result * Hepatitis C Screening (07/09/2012) Pathologist [facility] Hepatitis C Screening ABSTRACTED Historical Provider MD HEALTH MAINTENANCE Final Result from Last 3 Months or Most Recently Relevant to Health Maintenance Insurance MEDICA[place] - [place] [facility] MEDICARE ADVANTAGE Care Teams Direct Marketing Representative Relationship Specialty Start Date End Date Tim Atwood MD [address] [place] [address] PCP - General 06/24/22
== END 2025-02-04 09:25 | disposition home or self-care (01) ==
LOC: HO.CT 09:24
PROVIDERS: Visit Provider Neurological Surgery
DX: S32.009A Unspecified fracture of unspecified lumbar vertebra, initial encounter for closed fracture (principal)
CPT/HCPCS: 72131

== ENCOUNTER → 2025-02-04 09:25 | Outpatient (BNV) | payer BC, MEDICAID, SELFPAY | PROVIDERS: Visit Provider Radiology Diagnostic Radiology | DX: S32.009A Unspecified fracture of unspecified lumbar vertebra, initial encounter for closed fracture (principal); M99.63 Osseous and subluxation stenosis of intervertebral foramina of lumbar region | CPT/HCPCS: 72131 ==

== ENCOUNTER 2025-02-04 10:12 | Outpatient (AMB) | payer BC, MEDICAID, SELFPAY ==
--- NOTE | 2025-02-04 10:29 | A.SPINEOV_ITS ---
Intake Visit Reasons: CT f/u Intake Note: Ms. Weinstein is here today to F/u on the result of her CT. Exercise Instruct Required: No Allergies iodine Allergy (Intermediate, Verified 12/10/24 13:37) Rash oxycodone Allergy (Intermediate, Verified 12/10/24 13:37) Rash Penicillins Allergy (Intermediate, Verified 12/10/24 13:37) Rash pineapple Allergy (Intermediate, Verified 12/10/24 13:37) Rash seafood Allergy (Intermediate, Verified 12/10/24 13:37) Rash Sulfa (Sulfonamide Antibiotics) Allergy (Intermediate, Verified 12/10/24 13:37) Rash antibiotics Allergy (Intermediate, Uncoded 11/28/24 16:08) Rash Assessment & Plan Assessment & Plan (1) Lumbar vertebral fracture: Code(s): S32.009A - Unspecified fracture of unspecified lumbar vertebra, initial encou nter for closed fracture Category: Medical Qualifiers: Lumbar vertebra fracture level: L5 Fracture type: closed Fracture morphology: burst- stable Fracture healing: with routine healing Plan Dear colleague, On 02/04/2025 I saw for follow-up Suzanne Weinstein. She suffered a L5 vertebral burst fracture associated with osteoporosis. She suffering from back pain and bilateral leg pain. Unfortunately, a CT of the lumbar spine shows that her bone quality will not allow me to perform any form of decompressive or fusion surgery. I will refer the patient to pain management to see if she is a candidate for a spinal cord stimulator. I spent 15 minutes in his consult reviewing imaging and discussing plan of care. Alvaro Bradford MD, PhD Spine Fellowship Trained Neurosurgeon Director, [facility] Orders: Referrals Pain Management Referral S32.009A - Unspecified fracture of unspecified lumbar vertebra, initial encounter for closed fracture Coding Level of Care Code Est Pt Level 2 (27427) Diagnoses Lumbar vertebral fracture S32.009A Lumbar vertebra fracture level: L5 Fracture type: closed Fracture morphology: burst- stable Fracture healing: with routine healing
== END 2025-02-04 11:25 | disposition home or self-care (01) ==
LOC: HO.HNS 10:12
PROVIDERS: PCP Internal Medicine; Visit Provider Neurological Surgery
DX: S32.009A Unspecified fracture of unspecified lumbar vertebra, initial encounter for closed fracture (principal)
CPT/HCPCS: 99212